=== PATIENT | female | born 1980 | race Hispanic/Latino ===

== ENCOUNTER 2020-05-19 01:09 | Observation (INO) | payer OTHER, SELFPAY ==
[2020-05-19 01:39] LABS: Protime INR 0.97
[2020-05-19 01:41] LABS: Absolute Lymphocytes (CBC) 2.8 K/uL (0.7-4.9); Basophils % 0.6 % (0-1.3); Hematocrit 42.3 % (36.0-45.0); MPV 7.9 fL (7.6-11.3); RBC Red Blood Cell Count 4.74 M/uL (3.86-4.86)
[2020-05-19 01:54] LABS: ALT/SGPT 24 U/L (12-78); AST/SGOT 13 U/L (15-37); Albumin 4.2 g/dL (3.4-5.0); Alkaline Phosphatase 91 U/L (45-117); BUN Blood Urea Nitrogen 12 mg/dL (7-18); Bicarbonate 19 mmol/L (21-32); Bilirubin Direct < 0.1 mg/dL (0-0.2); Bilirubin Total 0.3 mg/dL (0.2-1.0); Glucose Level 139 mg/dL (74-106); NT PRO-BNP 37 pg/mL (<125); Potassium 3.3 mmol/L (3.5-5.1); Protein, Total 7.7 g/dL (6.4-8.2); Sodium Level 139 mmol/L (136-145); Troponin (Emerg Dept Use Only) < 0.02 ng/mL (0.0-0.045)
[2020-05-19] MEDS ORDERED: ONDANSETRON 4 MG/2 ML VIAL ONE ×2 (01:59→05:04)
--- NOTE | 2020-05-19 02:49 | EDPHYS ---
Physician Documentation [facility] Name: Simin Doe Age: 39 yrs Sex: Female : 1980 Arrival Date: 05/19/2020 Time: 01:09 Bed 6 Private MD: ED Physician Coleman Valentin HPI: 05/19 03:39 This 39 yrs old Female presents to ER via Ambulatory with complaints of Chest tw4 Pain, Numbness Of Arm. 03:39 The patient presents with abdominal pain. Onset: The symptoms/episode began/occurred tw4 today. The symptoms do not radiate. Associated signs and symptoms: Pertinent positives: nausea, vomiting, and diarrhea, nausea and vomiting, Pertinent negatives: constipation, diarrhea, dysuria, fever, headache, hematuria, palpitations, shortness of breath, vaginal discharge. The symptoms are described as crampy. Modifying factors: The symptoms are alleviated by nothing, the symptoms are aggravated by nothing. The patient has not experienced similar symptoms in the past. 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 - Social history:: Smoking status: Patient denies any tobacco usage or history of. Patient uses alcohol, occasionally. Patient/guardian denies using street drugs. ROS: 03:39 Constitutional: Negative for fever, chills, and weight loss, Eyes: Negative for injury, tw4 pain, redness, and discharge, Cardiovascular: Negative for chest pain, palpitations, and edema, Respiratory: Negative for shortness of breath, cough, wheezing, and pleuritic chest pain. 03:39 MS/Extremity: Negative for injury and deformity, Skin: Negative for injury, rash, and discoloration. 03:39 Abdomen/GI: Positive for abdominal pain, nausea and vomiting, anorexia, dysphagia, hematemesis, black/tarry stool, rectal pain, Negative for Exam: 03:39 Constitutional: This is a well developed, well nourished patient who is awake, alert, tw4 and in no acute distress. Head/Face: Normocephalic, atraumatic. Chest/axilla: Normal chest wall appearance and motion. Nontender with no deformity. No lesions are appreciated. Cardiovascular: Regular rate and rhythm with a normal S1 and S2. No gallops, murmurs, or rubs. Normal PMI, no JVD. No pulse deficits. Respiratory: Lungs have equal breath sounds bilaterally, clear to auscultation and percussion. No rales, rhonchi or wheezes noted. No increased work of breathing, no retractions or nasal flaring. Back: No spinal tenderness. No costovertebral tenderness. Full range of motion. 03:39 Abdomen/GI: Inspection: abdomen appears normal, Bowel sounds: normal, Palpation: mild abdominal tenderness, in all quadrants. Vital Signs: 01:17 BP 131 / 87 LA Supine; Pulse 81; Resp 20 S; Temp 98.8(O); Pulse Ox 100% on R/A; Weight mg2 81.65 kg (R); Height 4 ft. 9 in. (144.78 cm) (R); Pain 10/10; 01:38 BP 139 / 73 RA Supine; Pulse 62; Resp 18; Pulse Ox 100% on R/A; mg2 02:58 BP 137 / 66; Pulse 63; Resp 18; Pulse Ox 97% on R/A; mg2 04:00 BP 134 / 89; Pulse 63; Resp 18; Pulse Ox 99% on R/A; rv 05:03 BP 129 / 89; Pulse 76; Resp 16; Pulse Ox 99% on R/A; rv 06:28 BP 135 / 87; Pulse 57; Resp 16; Pulse Ox 99% on R/A; rv 01:17 Body Mass Index 38.95 (81.65 kg, 144.78 cm) mg2 MDM: 01:20 Patient medically screened. tw4 03:41 Data reviewed: vital signs, nurses notes. Data interpreted: Pulse oximetry: tw4 Interpretation: normal. Counseling: I had a detailed discussion with the patient and/or guardian regarding: the historical points, exam findings, and any diagnostic results supporting the discharge/admit diagnosis. 05:07 Medication response: morphine relieved the patient's pain. Symptoms have resolved. tw4 Response to treatment: the patient's symptoms have mildly improved after treatment. Physician consultation: Tigre Castañeda MD regarding admission, to the medical/surgical unit. patient's condition, and will see patient in ED. 05/19 01:15 Order name: Basic Metabolic Panel; Complete Time: 02:47 tw4 05/19 02:47 Interpretation: Normal except: K 3.3; GLUC 139; CO2 19; CL 108; GFR 81. 05/19 01:15 Order name: CBC with Diff; Complete Time: 02:47 05/19 02:47 Interpretation: Within normal limits. 05/19 01:15 Order name: LFT's; Complete Time: 02:47 4 05/19 02:47 Interpretation: Normal except: AST 13. 05/19 01:15 Order name: Magnesium; Complete Time: 02:47 05/19 02:47 Interpretation: Within normal limits: MG 2.0. 05/19 01:15 Order name: NT PRO-BNP; Complete Time: 02:47 05/19 02:47 Interpretation: Within normal limits: NT PRO-BNP 37. 05/19 01:15 Order name: PT-INR; Complete Time: 02:47 05/19 02:47 Interpretation: Within normal limits: PT 11.4. 05/19 01:15 Order name: Troponin (emerg Dept Use Only); Complete Time: 02:47 [facility] 05/19 02:47 Interpretation: Within normal limits: TROPED < 0.02. 4 05/19 06:59 Order name: Basic Metabolic Panel [facility] 05/19 06:59 Order name: Basic Metabolic Panel [facility] 05/19 06:59 Order name: CBC with Automated Diff [facility] 05/19 06:59 Order name: CBC with Automated Diff [facility] 05/19 06:59 Order name: Lipase [facility] 05/19 06:59 Order name: Lipase [facility] 05/19 06:59 Order name: Liver (Hepatic) Function [facility] 05/19 01:15 Order name: XRAY Chest (1 view) tw 05/19 01:15 Order name: EKG; Complete Time: 01:16 05/19 01:16 Order name: Cardiac monitoring; Complete Time: 01:22 05/19 01:16 Order name: EKG - Nurse/Tech; Complete Time: 01:22 05/19 01:16 Order name: IV Saline Lock; Complete Time: : tw4 05/19 01:16 Order name: Labs collected and sent; Complete Time: tw4 05/19 01:16 Order name: O2 Per Protocol; Complete Time: tw4 05/19 01:16 Order name: O2 Sat Monitoring; Complete Time: : tw4 05/19 02:59 Order name: CT Abd/Pelvis - IV Contrast Only tw4 05/19 06:59 Order name: NPO [facility] 05/19 06:59 Order name: Liver (Hepatic) Function ED[facility] EC:55 Rate is 75 beats/min. Rhythm is regular. QRS [place] is Normal. [place] interval is normal. QRS tw4 interval is normal. QT interval is normal. No Q waves. T waves are Normal. No ST changes noted. Clinical impression: NSR w/ Non-specific ST/T Changes. Interpreted by me. Reviewed by me. Administered Medications: 04:43 Drug: Zosyn 3.375 grams Route: IVPB; Infused Over: 60 mins; Site: right antecubital; bb 06:28 Follow up: IV Status: Completed infusion; IV Intake: 100ml rv 04:56 Drug: morphine 4 mg Route: IVP; Site: right antecubital; rv 06:28 Follow up: Response: No adverse reaction; Marked relief of symptoms; Pain is decreased; rv RASS: Alert and Calm (0) 04:56 Drug: Zofran (Ondansetron) 4 mg Route: IVP; Site: right antecubital; rv 06:28 Follow up: Response: No adverse reaction; Marked relief of symptoms rv Disposition: 05/19/20 04:44 Hospitalization ordered by Tigre Castañeda for Inpatient Admission. Preliminary diagnosis is Cholecystitis. - Bed requested for Telemetry/MedSurg (Inpatient). - Status is Inpatient Admission. bb - Condition is Stable. - Problem is new. - Symptoms are unchanged. Signatures: Dispatcher [employer] EDAriela Stewart RN RN bb Garcia, Cindy, RN RN cg Wadley, Terrence, MD MD tw4 Bebeto Peacock RN RN rv Corrections: (The following items were deleted from the chart) 04:35 02:49 05/19/2020 02:49 Discharged to Home. Impression: Nausea and vomiting. Condition tw4 is Stable. Forms are Medication Reconciliation Form, Thank You Letter, Antibiotic Education, Prescription Opioid Use. Follow up: Private Physician; When: Upon discharge from the Emergency Department; Reason: Recheck today's complaints, Continuance of care, Re-evaluation by your physician. Problem is new. Symptoms have improved. tw4 04:58 04:44 Hospitalization Ordered by Tigre Castañeda MD for Inpatient Admission. Preliminary cg diagnosis is Cholecystitis. Bed requested for Telemetry/MedSurg (Inpatient). Status is Inpatient Admission. Condition is Stable. Problem is new. Symptoms are unchanged. tw4 06:09 04:58 05/19/2020 04:44 Hospitalization Ordered by Tigre Castañeda MD for Inpatient cg Admission. Preliminary diagnosis is Cholecystitis. Bed requested for [facility] ER HOLD. Status is Inpatient Admission. Condition is Stable. Problem is new. Symptoms are unchanged. 06:57 06:09 05/19/2020 04:44 Hospitalization Ordered by Tigre Castañeda MD for Inpatient cg Admission. Preliminary diagnosis is Cholecystitis. Bed requested for Telemetry/MedSurg (Inpatient). Status is Inpatient Admission. Condition is Stable. Problem is new. Symptoms are unchanged. 07:38 06:57 05/19/2020 04:44 Hospitalization Ordered by Tigre Castañeda MD for Inpatient bb Admission. Preliminary diagnosis is Cholecystitis. Bed requested for Telemetry/MedSurg (Inpatient). Status is Inpatient Admission. Condition is Stable. Problem is new. Symptoms are unchanged. cg
--- NOTE | 2020-05-19 02:49 | ER ---
Nurse's Notes [facility] Name: Simin Doe Age: 39 yrs Sex: Female : 1980 Arrival Date: 05/19/2020 Time: : Bed 6 Private MD: Diagnosis: Cholecystitis Presentation: 05/19 01:17 Chief complaint: Patient states: she started having chest pain tonight with difficulty bb breathing and numbness to right arm. Coronavirus screen: At this time, the client does not indicate any symptoms associated with coronavirus-19. Ebola Screen: No symptoms or risks identified at this time. Initial Sepsis Screen: Does the patient meet any 2 criteria? No. Patient's initial sepsis screen is negative. Does the patient have a suspected source of infection? No. Patient's initial sepsis screen is negative. Risk Assessment: Do you want to hurt yourself or someone else? Patient reports no desire to harm self or others. Onset of symptoms was May 19, 2020. 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 - Social history:: Smoking status: Patient denies any tobacco usage or history of. Patient uses alcohol, occasionally. Patient/guardian denies using street drugs. Screenin:23 Abuse screen: Denies threats or abuse. Denies injuries from another. Nutritional mg2 screening: No deficits noted. Tuberculosis screening: No symptoms or risk factors identified. Fall Risk IV access (20 points). Assessment: 01:23 General: Appears uncomfortable, Behavior is cooperative. Pain: Complains of pain in mg2 back and chest Pain currently is 9 out of 10 on a pain scale. Pain began gradually, Is intermittent. Neuro: Level of Consciousness is awake, alert, obeys commands, Oriented to person, place, time, situation. Cardiovascular: Capillary refill < 3 seconds Patient's skin is warm and dry. Respiratory: Airway is patent Respiratory effort is even, unlabored, Respiratory pattern is regular, symmetrical. GI: No signs and/or symptoms were reported involving the gastrointestinal system. : No signs and/or symptoms were reported regarding the genitourinary system. EENT: No signs and/or symptoms were reported regarding the EENT system. Derm: Skin is intact, is healthy with good turgor, Skin is pink, warm \T\ dry. normal. Musculoskeletal: Circulation, motion, and sensation intact. Capillary refill < 3 seconds. 01:24 Pain: mg2 01:37 Reassessment: Patient appears in no apparent distress at this time. Patient and/or mg2 family updated on plan of care and expected duration. Pain level reassessed. Patient is alert, oriented x 3, equal unlabored respirations, skin warm/dry/pink. 02:57 Reassessment: patient complaining abdominal pain radiating to the back. mg2 05:01 Reassessment: ABDOMINAL CT SCAN IS DONE. TEST RESULT EXPLAINED BY DR ROMANO TO THE rv PATIENT. STATED PLAN OF CARE. PATIENT VERBALIZED UNDERSTANDING. AWAITING ADMISSION ORDERS. Vital Signs: 01:17 BP 131 / 87 LA Supine; Pulse 81; Resp 20 S; Temp 98.8(O); Pulse Ox 100% on R/A; Weight mg2 81.65 kg (R); Height 4 ft. 9 in. (144.78 cm) (R); Pain 10/10; 01:38 BP 139 / 73 RA Supine; Pulse 62; Resp 18; Pulse Ox 100% on R/A; mg2 02:58 BP 137 / 66; Pulse 63; Resp 18; Pulse Ox 97% on R/A; mg2 04:00 BP 134 / 89; Pulse 63; Resp 18; Pulse Ox 99% on R/A; rv 05:03 BP 129 / 89; Pulse 76; Resp 16; Pulse Ox 99% on R/A; rv 06:28 BP 135 / 87; Pulse 57; Resp 16; Pulse Ox 99% on R/A; rv 01:17 Body Mass Index 38.95 (81.65 kg, 144.78 cm) mg2 ED Course: 01:09 Patient arrived in ED. cl3 01:19 Triage completed. bb 01:19 Coleman Romano MD is Attending Physician. tw4 01:20 Arm band placed on Patient placed in an exam room, on a stretcher, on rn cardiac cath, bb on pulse oximetry. EKG completed in triage. Results shown to MD. 01:22 Michel Salguero, RN is Primary Nurse. mg2 01:22 No provider procedures requiring assistance completed. Inserted saline lock: 20 gauge mg2 in right antecubital area, using aseptic technique. Blood collected. Patient maintains SpO2 saturation greater than 95% on room air. 01:24 Patient has correct armband on for positive identification. dermatologist managing partner on. Pulse mg2 ox on. NIBP on. 01:40 XRAY Chest (1 view) In Process Unspecified. EDMS 03:41 CT Abd/Pelvis - IV Contrast Only In Process Unspecified. EDMS 04:43 Tigre Castañeda MD is Hospitalizing Provider. tw4 07:19 Report given to REJI White. tw2 Administered Medications: 04:43 Drug: Zosyn 3.375 grams Route: IVPB; Infused Over: 60 mins; Site: right antecubital; bb 06:28 Follow up: IV Status: Completed infusion; IV Intake: 100ml rv 04:56 Drug: morphine 4 mg Route: IVP; Site: right antecubital; rv 06:28 Follow up: Response: No adverse reaction; Marked relief of symptoms; Pain is decreased; rv RASS: Alert and Calm (0) 04:56 Drug: Zofran (Ondansetron) 4 mg Route: IVP; Site: right antecubital; rv 06:28 Follow up: Response: No adverse reaction; Marked relief of symptoms rv Intake: 06:28 IV: 100ml; Total: 100ml. rv Outcome: 02:49 Discharge ordered by MD. tw4 04:44 Decision to Hospitalize by Provider. tw4 07:38 Patient left the ED. bb Signatures: Dispatcher [employer] EDMS Ariela Oconnor RN RN bb Lucy Jacinto RN RN tw2 Coleman Romano MD MD tw4 Michel Salguero, REJI MENDOZA mg2 Bebeto Peacock RN RN rv Latricia Rhodes cl3 Corrections: (The following items were deleted from the chart) 01:25 01:17 BP 131 / 87; Pulse 81bpm; Resp 20bpm; Spontaneous; Pulse Ox 100% RA; Temp 98.8F mg2 Oral; 81.65 kg Reported; Height 4 ft. 9 in. Reported; BMI: 38.9; Pain 10/10; bb
[2020-05-19] MEDS ORDERED: PIPER/TAZO/NS 3.375gm 3.375 GM/100 ML BAG ONE (04:53)
[2020-05-19] MEDS ORDERED: MORPHINE 4 MG/ML SYR ONE (05:04)
[2020-05-19] MEDS ORDERED: ONDANSETRON 4 MG/2 ML VIAL IV PRN (06:58)
--- NOTE | 2020-05-19 07:16 | RAD REPORT ---
EXAM DESCRIPTION: RAD - Chest Single View - 05/19/2020 1:40 am CLINICAL HISTORY: COUGH COMPARISON: September 2014 TECHNIQUE: AP portable chest image was obtained 05/19/2020 1:40 am . FINDINGS: Lung volumes are low. No focal lung parenchymal process. Interstitial pattern is accentuat ed by the low lung volumes. Significant interstitial edema or infiltrate doubtful. Heart and vasculat ure are normal. No measurable pleural effusion and no pneumothorax. No acute bony abnormality seen. N o acute aortic findings suspected. IMPRESSION: No acute cardiopulmonary process. No significant change from comparison.
[2020-05-19 08:07] VITALS: O2SAT 97; BMI 38.9
[2020-05-19] MEDS: D5 0.45 NS 1,000 ML IV SCH ×2 (08:13→15:00)
--- NOTE | 2020-05-19 12:04 | RAD REPORT ---
EXAM DESCRIPTION: CT - Abdomen Pelvis W Contrast - 05/19/2020 5:48 am CLINICAL HISTORY: The patient is 39 years old and is Female; ABD PAIN TECHNIQUE: Axial computed tomography images of the abdomen and pelvis with intravenous contrast. S agittal and coronal reformatted images were created and reviewed. This CT exam was performed using one or more of the following dose reduction techniques: automated exposure control, adjustment of t he mA and/or kV according to patient size, and/or use of iterative reconstruction technique. COMPARISON: No relevant prior studies available. FINDINGS: LUNG BASES: Unremarkable. No mass. No consolidation. ABDOMEN: LIVER: Unremarkable. No mass. GALLBLADDER AND BILE DUCTS: The gallbladder is distended with a large gallstone in the neck of t he gallbladder. Pericholecystic inflammation/gallbladder wall thickening is present. PANCREAS: No ductal dilation. No mass. SPLEEN: Unremarkable. ADRENALS: Unremarkable. No mass. KIDNEYS AND URETERS: Unremarkable. The kidneys enhance symmetrically. No obstructing renal or ur eteral calculus is seen. No hydronephrosis or hydroureter. No perinephric fluid or stranding. STOMACH AND BOWEL: The stomach is minimally distended with food contents. The small bowel is rel atively normal in caliber. Stool is present throughout the colon. There is no mucosal thickening or e vidence of bowel obstruction. PELVIS: APPENDIX: The appendix is normal in caliber without surrounding inflammation. BLADDER: The bladder is well distended. REPRODUCTIVE: An IUD is in place. The uterus and ovaries are unremarkable. ABDOMEN and PELVIS: INTRAPERITONEAL SPACE: Unremarkable. No free air. No significant fluid collection. BONES/JOINTS: No acute fracture. SOFT TISSUES: The soft tissues are normal. VASCULATURE: Unremarkable. No abdominal aortic aneurysm. LYMPH NODES: Unremarkable. No enlarged lymph nodes. IMPRESSION: Cholelithiasis with findings concerning for acute cholecystitis. Electronically signed by: Sherlyn Thayer MD 05/19/2020 4:00 AM CDT Due to temporary technical issues with the PACS/Fluency reporting system, reports are being signed by the in house radiologist without review as a courtesy to ensure prompt reporting. The interpreting r adiologist is fully responsible for the content of the report.
[2020-05-19] MEDS ORDERED: MORPHINE 2 MG/ML SYR IV ONE (12:07)
--- NOTE | 2020-05-19 12:16 | EKG ---
Test Date: 2020-05-19 Test Time: 01:15:41 Child Caregiver: RV MEASUREMENT RESULTS: Intervals: Rate: 75 TX: 130 QRSD: 84 QT: 396 QTc: 442 [place]: P: -12 TX: 130 QRS: -4 T: 1 INTERPRETIVE STATEMENTS: Normal sinus rhythm with sinus arrhythmia Possible Anterior infarct, age undetermined Abnormal ECG No previous ECG available for comparison Electronically Signed On 05-19-20 12:15:03 CDT by Westley Olivia
[2020-05-19 12:22] VITALS: BP 127/80; TEMP 98
--- NOTE | 2020-05-19 13:34 | P.HP ---
Date of Service: 05/19/20 PC: This 39-year-old female presents emergency room with severe right upper quadrant abdominal pain for diagnosis and treatment. HPC: This is the patient's 1st episode was severe right upper quadrant abdominal pain. Describes it as severe, radiating into her back. Has been on some weight loss medication recent lost of 18 lb. PMH: 2 para 2 PSHx: Negative SOC: No known allergies SYS REVIEW: No cough, wheeze, shortness of breath. No chest pain or palpitations. No urinary complaints. On further questioning she denies having any fatty food intolerance, or pain similar to this in the past. O/E awake alert relatively comfortable, vital signs are stable HEENT: Not jaundice Chest: Air movement equal bilaterally ABD: Mild soreness in the right upper quadrant LOCO: Intact DATA: Has large documented gallstone IMPRESSION: Cholecystitis with biliary call PLAN: I had intended on taking the patient to the operating room for a laparoscopic cholecystectomy with intraoperative cholangiogram. Our anesthesiologist however is very concerned the fact that the patient has been on Fen-Phen and the incidence of sudden in young otherwise healthy patient is has been reported. He recommends that we postpone the surgery for at least a week. I have discussed this with the patient. She is comfortable with that decision. She will come see me sometime next week and we will try and schedule this as an elective procedure. In the meantime she has been told should she have recurrence of her pain were could no longer tolerate return to the emergency room and contact me. She understands and wants to proceed.
== END 2020-05-19 15:27 | disposition home or self-care (01) ==
LOC: ER 01:09 → INTOOBSV 07:02 → ERHOLD 07:02 → 2ND 07:22
PROVIDERS: ADMIT Surgery; ATTEND Surgery
DX: K81.9 Cholecystitis, unspecified (principal); F41.9 Anxiety disorder, unspecified
CPT/HCPCS: 36415; 71045; 74177; 80048; 80076; 83735; 83880; 84484; 84703; 85025; 85610; 93005; 96365; 96366; 96375; 99285; G0378; J2270; J2405; J2543; J7799; Q9967; U0002

== ENCOUNTER 2020-05-25 06:10 | Inpatient (IN) | payer SELFPAY ==
[2020-05-25 06:53] LABS: Absolute Lymphocytes (CBC) 1.7 K/uL (0.7-4.9); Basophils % 0.4 % (0-1.3); Hematocrit 41.4 % (36.0-45.0); Lymphocytes % 17.3 % (15.3-44.8); MPV 7.6 fL (7.6-11.3); RBC Red Blood Cell Count 4.62 M/uL (3.86-4.86)
[2020-05-25] MEDS ORDERED: ONDANSETRON 4 MG/2 ML VIAL ONE ×2 (07:00→12:56)
[2020-05-25] MEDS ORDERED: NA CHLORIDE 0.9% 1,000 ML ONE ×2 (07:00→08:29)
[2020-05-25] MEDS ORDERED: MORPHINE 4 MG/ML SYR ONE (07:00)
[2020-05-25 07:10] LABS: ALT/SGPT 39 U/L (12-78); AST/SGOT 19 U/L (15-37); Albumin 3.3 g/dL (3.4-5.0); Alkaline Phosphatase 107 U/L (45-117); BUN Blood Urea Nitrogen 7 mg/dL (7-18); Bicarbonate 23 mmol/L (21-32); Bilirubin Direct < 0.1 mg/dL (0-0.2); Bilirubin Total 0.2 mg/dL (0.2-1.0); Glucose Level 105 mg/dL (74-106); Lipase 66 U/L (73-393); Potassium 3.8 mmol/L (3.5-5.1); Protein, Total 7.7 g/dL (6.4-8.2); Sodium Level 138 mmol/L (136-145)
--- NOTE | 2020-05-25 07:18 | RAD REPORT ---
EXAM DESCRIPTION: US - Abdomen Exam Limited - 05/25/2020 7:09 am CLINICAL HISTORY: ABD PAIN COMPARISON: Abdomen Pelvis W Contrast dated 05/19/2020 FINDINGS: Large gallstone is again identified fixed in the neck of the gallbladder. No other stone o r sludge identifiable. Gallbladder wall is thickened slightly but no pericholecystic fluid seen. No common duct stone or biliary tree dilatation identified. IMPRESSION: Large gallstone remains fixed at the neck of the gallbladder. Gallbladder wall is thicke harvey the without pericholecystic fluid. No biliary tree abnormality.
--- NOTE | 2020-05-25 08:06 | EDPHYS ---
Physician Documentation [facility] Name: Simin Doe Age: 39 yrs Sex: Female : 1980 Arrival Date: 05/25/2020 Time: 06:10 Bed 8 Private MD: ED Physician Rick Villanueva HPI: 05/25 07:07 This 39 yrs old Female presents to ER via Ambulatory with complaints of kb Abdominal Pain. 07:07 The patient presents with abdominal pain in the right upper quadrant. Onset: The kb symptoms/episode began/occurred 1 week(s) ago. The symptoms radiate to right back. Associated signs and symptoms: none. The symptoms are described as constant. Modifying factors: The symptoms are alleviated by nothing, the symptoms are aggravated by pressure. Severity of pain: At its worst the pain was moderate in the emergency department the pain is unchanged. The patient has not experienced similar symptoms in the past. The patient has been recently seen by a physician: The patient has been recently seen at the [facility] Emergency Department. Pt reports RUQ pain started on Monday. Came here and was diagnosed with gallstones and infection. Saw Dr Castañeda on Monday in his office. States they were going to do surgery, but the anesthesiologist wanted her to stop phenermine for a while first. Came back today because the pain was uncontrollable. . 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 - Social history:: Smoking status: Patient denies any tobacco usage or history of. ROS: 07:06 Constitutional: Negative for fever, chills, and weight loss, Cardiovascular: Negative kb for chest pain, palpitations, and edema, Respiratory: Negative for shortness of breath, cough, wheezing, and pleuritic chest pain, Back: Negative for injury and pain, MS/Extremity: Negative for injury and deformity, Skin: Negative for injury, rash, and discoloration, Neuro: Negative for headache, weakness, numbness, tingling, and seizure. 07:06 Abdomen/GI: Positive for abdominal pain, Negative for nausea, vomiting, and diarrhea. Exam: 07:06 Constitutional: This is a well developed, well nourished patient who is awake, alert, kb and in no acute distress. Head/Face: Normocephalic, atraumatic. Chest/axilla: Normal chest wall appearance and motion. Nontender with no deformity. No lesions are appreciated. Cardiovascular: Regular rate and rhythm with a normal S1 and S2. No gallops, murmurs, or rubs. Normal PMI, no JVD. No pulse deficits. Respiratory: Lungs have equal breath sounds bilaterally, clear to auscultation and percussion. No rales, rhonchi or wheezes noted. No increased work of breathing, no retractions or nasal flaring. Back: No spinal tenderness. No costovertebral tenderness. Full range of motion. Skin: Warm, dry with normal turgor. Normal color with no rashes, no lesions, and no evidence of cellulitis. MS/ Extremity: Pulses equal, no cyanosis. Neurovascular intact. Full, normal range of motion. Neuro: Awake and alert, GCS 15, oriented to person, place, time, and situation. Cranial nerves II-XII grossly intact. Motor strength 5/5 in all extremities. Sensory grossly intact. Cerebellar exam normal. Normal gait. 07:06 Abdomen/GI: Inspection: abdomen appears normal, Bowel sounds: normal, in all quadrants, Palpation: soft, in all quadrants, mild abdominal tenderness, in the right upper quadrant. Vital Signs: 06:30 BP 129 / 100; Pulse 100; Resp 18; Temp 98.8(O); Pulse Ox 100% on R/A; Weight 86.18 kg lp1 (R); Height 4 ft. 9 in. (144.78 cm); Pain 10/10; 09:10 BP 123 / 85; Pulse 83; ss 09:22 BP 130 / 87; Pulse 88; Resp 16; Pulse Ox 100% ; sv 06:30 Body Mass Index 41.12 (86.18 kg, 144.78 cm) lp1 MDM: 06:29 Patient medically screened. kb 07:07 Data reviewed: vital signs, nurses notes. Data interpreted: Pulse oximetry: on room air kb is 100 %. Interpretation: normal. 08:02 Counseling: I had a detailed discussion with the patient and/or guardian regarding: the kb historical points, exam findings, and any diagnostic results supporting the discharge/admit diagnosis, lab results, radiology results, the need for further work-up and treatment in the hospital. Physician consultation: Tigre Castañeda MD was contacted at 08:04, regarding admission, to the medical/surgical unit. patient's condition, and will see patient in inpatient room, later today, wants pt NPO for cholecystectomy today. 05/25 06:35 Order name: Basic Metabolic Panel kb 05/25 06:35 Order name: CBC with Diff kb 05/25 06:35 Order name: Hepatic Function kb 05/25 06:35 Order name: Lipase kb 05/25 06:54 Order name: CBC with Automated Diff; Complete Time: 06:55 EDMS 05/25 07:10 Order name: Basic Metabolic Panel; Complete Time: 07:15 EDMS 05/25 06:35 Order name: US Abdomen Limited kb 05/25 07:10 Order name: Liver (Hepatic) Function; Complete Time: 07:15 EDMS 05/25 07:10 Order name: Lipase; Complete Time: 07:15 EDMS 05/25 07:19 Order name: US; Complete Time: 07:34 EDMS 05/25 08:06 Order name: Urine Dipstick--Ancillary (enter results) bd 05/25 08:06 Order name: Urine --Ancillary (enter results) bd 05/25 08:42 Order name: Urine --Ancillary; Complete Time: 08:42 EDMS 05/25 08:42 Order name: Urine Dipstick-Ancillary; Complete Time: 08:42 EDMS 05/25 06:35 Order name: IV Saline Lock; Complete Time: 06:47 kb 05/25 06:35 Order name: Labs collected and sent; Complete Time: 06:47 kb Administered Medications: 06:50 Drug: NS 0.9% 1000 ml Route: IV; Rate: 1000 ml; Site: right antecubital; rv 09:00 Follow up: Response: No adverse reaction; IV Status: Completed infusion; IV Intake: sv 1000ml 06:50 Drug: Zofran (Ondansetron) 4 mg Route: IVP; Site: right antecubital; rv 07:30 Follow up: Response: No adverse reaction sv 06:50 Drug: morphine 4 mg {Note: RASS 0.} Route: IVP; Site: right antecubital; rv 07:30 Follow up: Response: No adverse reaction; Marked relief of symptoms; RASS: Alert and sv Calm (0) 08:37 Drug: Zosyn 3.375 grams Route: IVPB; Infused Over: 60 mins; Site: right antecubital; sv 09:23 Follow up: Response: No adverse reaction; IV Status: Infusion continued upon admission sv Disposition: 19:03 Co-signature as Attending Physician, Rick Villanueva MD. pkl Disposition: 05/25/20 08:06 Hospitalization ordered by Tigre Castañeda for Observation. Preliminary diagnosis is Cholecystitis. - Bed requested for Telemetry/MedSurg (observation). - Status is Observation. sv - Condition is Stable. - Problem is new. - Symptoms are unchanged. Signatures: Dispatcher [employer] EDMS Tanvi Acosta, LIAM-C FUEL OIL TRUCK DRIVER-Ashanti Skelton Stephanie, RN RN Rick Cole MD MD pkl Ida Hooker RN RN lp1 Bebeto Peacock, RN RN rv Corrections: (The following items were deleted from the chart) 09:02 08:06 Hospitalization Ordered by Tigre Castañeda MD for Observation. Preliminary bd diagnosis is Cholecystitis. Bed requested for Telemetry/MedSurg (observation). Status is Observation. Condition is Stable. Problem is new. Symptoms are unchanged. kb 09:35 09:02 05/25/2020 08:06 Hospitalization Ordered by Tigre Castañeda MD for Observation. sv Preliminary diagnosis is Cholecystitis. Bed requested for Telemetry/MedSurg (observation). Status is Observation. Condition is Stable. Problem is new. Symptoms are unchanged. bd
--- NOTE | 2020-05-25 08:06 | ER ---
Nurse's Notes [facility] Name: Simin Doe Age: 39 yrs Sex: Female : 1980 Arrival Date: 05/25/2020 Time: 06:10 Bed 8 Private MD: Diagnosis: Cholecystitis Presentation: 05/25 06:30 Chief complaint: Patient states: Upper abdominal pain radiating to back; States seeing lp1 Dr. Castañeda 3 days ago for gallbladder removal, unable to schedule surgery, told to return to ER if pain worsened; Denies N/V, fever. 06:30 Method Of Arrival: Ambulatory lp1 06:30 Coronavirus screen: Client denies travel out of the [place] in the last 14 days. At this lp1 time, the client does not indicate any symptoms associated with coronavirus-19. Ebola Screen: No symptoms or risks identified at this time. Initial Sepsis Screen: Does the patient meet any 2 criteria? No. Patient's initial sepsis screen is negative. Does the patient have a suspected source of infection? No. Patient's initial sepsis screen is negative. Risk Assessment: Do you want to hurt yourself or someone else? Patient reports no desire to harm self or others. Onset of symptoms was May 25, 2020. 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 - Social history:: Smoking status: Patient denies any tobacco usage or history of. Screenin:46 Abuse screen: Denies threats or abuse. Denies injuries from another. Nutritional lp1 screening: No deficits noted. Tuberculosis screening: No symptoms or risk factors identified. Fall Risk None identified. Assessment: 06:45 General: Appears uncomfortable, Behavior is appropriate for age. Pain: Complains of lp1 pain in epigastric area and right upper quadrant Pain radiates to back Pain currently is 10 out of 10 on a pain scale. Quality of pain is described as sharp. Neuro: Level of Consciousness is awake, alert, obeys commands, Oriented to person, place, time, situation. Cardiovascular: Patient's skin is warm and dry. Respiratory: Respiratory effort is even, unlabored. GI: Abdomen is non-distended, Bowel sounds present X 4 quads. Abdomen is tender to palpation in epigastric area and right upper quadrant. : No signs and/or symptoms were reported regarding the genitourinary system. EENT: No signs and/or symptoms were reported regarding the EENT system. Derm: Skin is pink, warm \T\ dry. Musculoskeletal: No deficits noted. 09:09 Reassessment: Attempted to call report, nurse unavailable. sv Vital Signs: 06:30 BP 129 / 100; Pulse 100; Resp 18; Temp 98.8(O); Pulse Ox 100% on R/A; Weight 86.18 kg lp1 (R); Height 4 ft. 9 in. (144.78 cm); Pain 10/10; 09:10 BP 123 / 85; Pulse 83; ss 09:22 BP 130 / 87; Pulse 88; Resp 16; Pulse Ox 100% ; sv 06:30 Body Mass Index 41.12 (86.18 kg, 144.78 cm) lp1 ED Course: 06:10 Patient arrived in ED. cl3 06:29 Tanvi Acosta [facility]C [facility]. kb 06:29 Rick Villanueva MD is Attending Physician. kb 06:40 Inserted saline lock: 20 gauge in right antecubital area, using aseptic technique. lp1 Blood collected. 06:40 Initial lab(s) drawn, by al, sent to lab. lp1 06:44 Triage completed. lp1 06:44 Arm band placed on. lp1 06:46 Bebeto Peacock, RN is Primary Nurse. rv 06:46 Patient has correct armband on for positive identification. lp1 07:01 Shante Tran, RN is Primary Nurse. sv 07:01 Basic Metabolic Panel Sent. sv 07:01 CBC with Diff Sent. sv 07:01 Hepatic Function Sent. sv 07:01 Lipase Sent. sv 07:12 US Abdomen Limited Sent. sv 08:06 Tigre Castañeda MD is Hospitalizing Provider. kb 08:11 Urine --Ancillary (enter results) Sent. sv 08:11 Urine Dipstick--Ancillary (enter results) Sent. sv 08:55 Awaiting bed assignment. sv 09:22 No provider procedures requiring assistance completed. Patient admitted, IV remains in sv place. intact. Administered Medications: 06:50 Drug: NS 0.9% 1000 ml Route: IV; Rate: 1000 ml; Site: right antecubital; rv 09:00 Follow up: Response: No adverse reaction; IV Status: Completed infusion; IV Intake: sv 1000ml 06:50 Drug: Zofran (Ondansetron) 4 mg Route: IVP; Site: right antecubital; rv 07:30 Follow up: Response: No adverse reaction sv 06:50 Drug: morphine 4 mg {Note: RASS 0.} Route: IVP; Site: right antecubital; rv 07:30 Follow up: Response: No adverse reaction; Marked relief of symptoms; RASS: Alert and sv Calm (0) 08:37 Drug: Zosyn 3.375 grams Route: IVPB; Infused Over: 60 mins; Site: right antecubital; sv 09:23 Follow up: Response: No adverse reaction; IV Status: Infusion continued upon admission sv Intake: 09:00 IV: 1000ml; Total: 1000ml. sv Outcome: 08:06 Decision to Hospitalize by Provider. kb 09:22 Admitted to Med/surg accompanied by tech, via wheelchair, room 204, with chart, Report sv called to Christopher MENDOZA 09:22 Condition: stable 09:22 Instructed on the need for admit. 09:35 Patient left the ED. sv Signatures: Tanvi Acosta, PROFILE SAW SETUP OPERATOR-C PROFILE SAW SETUP OPERATOR-Shante Jackman RN RN sv Smirch, Shelby, RN RN ss Pena, Laura, RN RN lp1 Bebeto Peacock RN RN rv Lewis, Charde cl3
[2020-05-25] MEDS ORDERED: PIPER/TAZO/NS 3.375gm 3.375 GM/100 ML BAG ONE (08:29)
[2020-05-25 08:42] LABS: Urine Blood NEGATIVE (NEG); Urine Glucose NEGATIVE (NEG); Urine Protein NEGATIVE (NEG); Urine pH 6.5 (5.0-7.0)
[2020-05-25] MEDS ORDERED: NA CHLORIDE 0.9% 1,000 ML IV SCH (09:51)
[2020-05-25] MEDS ORDERED: PIPER/TAZO/NS 3.375gm 3.375 GM/100 ML BAG IVPB SCH (09:51)
[2020-05-25] MEDS ORDERED: MORPHINE 4 MG/ML SYR IV PRN (09:51)
[2020-05-25] MEDS ORDERED: ONDANSETRON 4 MG/2 ML VIAL IV PRN ×2 (09:51→15:03)
[2020-05-25 10:05] VITALS: BMI 38.9
[2020-05-25] MEDS ORDERED: Ringers Lactate 1,000 ML IV ONE ×2 (12:24→14:02)
[2020-05-25] MEDS ORDERED: FENTANYL CITR 100 MCG/2 ML ONE ×3 (12:55→14:51)
[2020-05-25] MEDS ORDERED: KETOROLAC 30 MG/ML INJ ONE (12:55)
[2020-05-25] MEDS ORDERED: MIDAZOLAM HCL 2 MG/2 ML INJ ONE (12:55)
[2020-05-25] MEDS ORDERED: propofoL 200 MG/20 ML VIAL IV ONE (12:55)
[2020-05-25] MEDS ORDERED: dexAMETHasone 10 MG/ML VIAL ONE (12:55)
[2020-05-25] MEDS ORDERED: ROCURONIUM 50 MG/5 ML VIAL IV ONE (12:56)
[2020-05-25] MEDS ORDERED: LIDOCAINE 2% MPF 5 ML VIAL ONE (12:56)
--- NOTE | 2020-05-25 13:08 | P.HP ---
Date of Service: 05/25/20 PC: This 39-year-old female presents emergency room with severe right upper quadrant abdominal pain for diagnosis and treatment. HPC: This patient, who was known to have a large stone in her gallbladder, return to the emergency room last night she could no longer stand the pain. She had been seen one-week ureter and was hospitalist. At that point it was found that she was on Fen-Phen. Anesthesia had requested that the surgery be delayed at least 2 weeks. She has been at home but she could no longer stand the discomfort. PMH: Negative PSHx: Negative SOC: No known allergies SYS REVIEW: No cough, wheeze, shortness of breath. No chest pain or palpitations. Denies any urinary complaints. No change in her appetite. Just feels very tired as she has been able asleep for a well for the last 5 days. O/E awake alert uncomfortable HEENT: Not jaundiced Chest: Air entry equal bilaterally ABD: Mild right upper quadrant tenderness LOCO: Intact DATA: Has large documented stone in her gallbladder IMPRESSION: Cholecystitis with cholelithiasis, biliary colic PLAN: I will take her the operating room for laparoscopic cholecystectomy. The risks of this procedure have been discussed. The possibility of bleeding, infection, injury to bile ducts blood vessels intestines has been described. The possible need for an open and/or further surgeries and procedures was discussed. She understands and wants us to proceed.
[2020-05-25] MEDS ORDERED: SUCCINYLCHOLINE 20 MG/ML (10 ML) IV ONE (13:21)
[2020-05-25] MEDS ORDERED: NEOSTIGMINE 1 MG/ML -5 ML ONE (13:51)
[2020-05-25] MEDS ORDERED: GLYCOPYRROLATE 0.2 MG/ML SYR ONE (13:51)
[2020-05-25] MEDS ORDERED: ESMOLOL HCL 10 ML IV ONE ×2 (14:00→14:37)
--- NOTE | 2020-05-25 14:59 | P.OP ---
Preoperative diagnosis: Cholecystitis with cholelithiasis Postoperative diagnosis: Acute cholecystitis with cholelithiasis, hydrops of the gallbladder Primary procedure: Laparoscopic cholecystectomy Secondary procedure: Cholangiogram Other procedure(s): Jessica block Anesthesia: General Estimated blood loss: Less than 10 cc Specimen: 1 gallbladder and contents Findings: Chronically distended gallbladder, thick peel Operative Technique: The patient brought the operating room placed supine on the table. After the induction of adequate general endotracheal anesthesia, the area of the abdomen was prepped with a DuraPrep solution, she was draped in usual aseptic manner. A subumbilical incision was made. This brought down through the skin and subcutaneous tissue. The Visiport was now used to enter the peritoneal cavity and created pneumoperitoneum to approximately 12 mm of mercury. The patient was then placed in reverse Trendelenburg and rolled to the left. A 5 mm trocar was now placed in the upper midline, and 2 other 5 mm trocars on the right lateral side of the abdomen. We could visualize the liver and gallbladder. We could see that there was some acute as well as chronic omental adhesions on the serosal surface of the gallbladder. The acute was came down easily however there was a chronic peel over the gallbladder itself. This was carefully dissected off the gallbladder. This was done by placing a grasper on the fundus of the gallbladder. It was necessary to aspirate the contents of the gallbladder which we did. The contents appear to be mostly thin clear mucoid bile. Peel was traced around Sheila's pouch. Will was now possible place a grasper on Sheila's pouch applying lateral traction. We cleared the area so that we could provide for the critical view. There was lot of scar tissue in this area. The artery was easily identified. The cystic duct however was extremely short and we had to carefully dissect this out. A clip was placed across the cystic duct. It was quite short we only placed 1. The cystic duct was then transected. The cystic artery was identified and it was doubly clipped. The gallbladder was now dissected off of the liver bed. There was quite a lot of peel around even posteriorly on the gallbladder in the intrahepatic portion. We got into the correct plane and were able to remove the gallbladder from the liver bed. At 1 portion on the anterior surface we got slightly off plane. We were able easily control this using electro cautery. This pus was now placed into an Endo- Catch and using a nasal speculum we were able to allowed to egress from the peritoneal cavity. Attention was now turned towards right upper quadrant. Copious amounts of irrigating solution were used. We could see that the liver bed looked dry, no active bleeding was noted. The irrigating fluid was aspirated from the peritoneal cavity. The umbilical trocar site was now approximated with 3 interrupted sutures of 0 PDS. (Patient from the feel of the tissue and felt like she may have had a hernia there that was pre-existing. P 3 3) At this point, a Jessica block of the anterior abdominal was wall was done using 0.25% Marcaine. The pneumoperitoneum was now collapsed after having aspirated all the irrigating fluid from the peritoneal cavity. Marycruz were applied to the skin. These were then injected with again 0.25% Marcaine to allow for adequate analgesia during the postoperative period. Sterile dressings were applied At the end of the procedure she was in a stable condition when sent to the recovery room. Needle sponge instrument count were correct. No drains were placed. Complications: None Transferred to: Recovery Room Condition: Good
[2020-05-25] MEDS: MEPERIDINE HCL 25 MG/ML SYR ONE ×4 (15:13→15:31)
[2020-05-25] MEDS ORDERED: PROMETHAZINE INJ 25 MG/ML AMP ONE (15:24)
[2020-05-25 15:27] VITALS: O2SAT 98
[2020-05-25 15:43] LABS: Basophils % 0.2 % (0-1.3); Hematocrit 38.6 % (36.0-45.0); Lymphocytes % 18.6 % (15.3-44.8); MPV 7.4 fL (7.6-11.3); RBC Red Blood Cell Count 4.22 M/uL (3.86-4.86)
[2020-05-25] MEDS: NA CHLORIDE 0.9% 1,000 ML IV SCH ×2 (16:00→23:58)
[2020-05-25 16:02] LABS: BUN Blood Urea Nitrogen 5 mg/dL (7-18); Bicarbonate 26 mmol/L (21-32); Glucose Level 149 mg/dL (74-106); Potassium 4.2 mmol/L (3.5-5.1); Sodium Level 138 mmol/L (136-145)
[2020-05-25] MEDS: MORPHINE 4 MG/ML SYR IV PRN ×2 (17:08→20:32)
[2020-05-25] MEDS: PIPER/TAZO/NS 3.375gm 3.375 GM/100 ML BAG IVPB SCH ×2 (17:09→23:57)
[2020-05-25] MEDS: HYDROCODONE/APAP 7.5/325 MG TAB PO PRN (23:58)
[2020-05-26 06:03] LABS: ALT/SGPT 77 U/L (12-78); AST/SGOT 68 U/L (15-37); Absolute Lymphocytes (CBC) 0.8 K/uL (0.7-4.9); Alkaline Phosphatase 91 U/L (45-117); BUN Blood Urea Nitrogen 5 mg/dL (7-18); Basophils % 0.1 % (0-1.3); Bicarbonate 23 mmol/L (21-32); Bilirubin Direct 0.1 mg/dL (0-0.2); Bilirubin Total 0.3 mg/dL (0.2-1.0); Glucose Level 130 mg/dL (74-106); Hematocrit 37.4 % (36.0-45.0); Lipase 37 U/L (73-393); Lymphocytes % 5.4 % (15.3-44.8); MPV 7.6 fL (7.6-11.3); Potassium 3.9 mmol/L (3.5-5.1); Protein, Total 7.1 g/dL (6.4-8.2); RBC Red Blood Cell Count 4.15 M/uL (3.86-4.86); Sodium Level 138 mmol/L (136-145)
[2020-05-26] MEDS: HYDROCODONE/APAP 7.5/325 MG TAB PO PRN (07:52)
[2020-05-26 08:53] LABS: Platelet Estimate ADEQ
[2020-05-26 08:54] VITALS: BP 123/82; TEMP 97.4
[2020-05-26 08:54] LABS: Blood Morphology Comment NOT SEEN (NOT SEEN)
== END 2020-05-26 08:59 | disposition home or self-care (01) | DRG 418 ==
LOC: ER 06:10 → ERHOLD 08:08 → 2ND 09:22 → OBSVTOIN 05-26 07:49
PROVIDERS: ADMIT Surgery; ATTEND Surgery
PROC: BF101ZZ Fluoroscopy of Bile Ducts using Low Osmolar Contrast (ICD-10-PCS; 2020-05-25)
PROC: 0FT44ZZ Resection of Gallbladder, Percutaneous Endoscopic Approach (ICD-10-PCS; principal; 2020-05-25 12:45)
DX: K80.00 Calculus of gallbladder with acute cholecystitis without obstruction (principal); K82.1 Hydrops of gallbladder
CPT/HCPCS: 36415; 76705; 80048; 80076; 81003; 81025; 83690; 85025; 88304; 94010; 96361; 96365; 96375; 99285; G0378; J0330; J1100; J2175; J2250; J2405; J2543; J2550; J2704; J2710; J3010; J7030; J7120

== ENCOUNTER 2020-07-01 07:48 | Emergency (ER) | payer SELFPAY ==
[2020-07-01] MEDS ORDERED: MAGNES/ALUMIN/SIMET 30ML UCUP ONE (08:25)
[2020-07-01] MEDS ORDERED: LIDOCAINE VISCOUS 2% SOLN 15 ML UDC ONE (08:26)
[2020-07-01] MEDS ORDERED: MEPERIDINE HCL 25 MG/ML SYR ONE (08:26)
[2020-07-01] MEDS ORDERED: ONDANSETRON 4 MG/2 ML VIAL ONE (08:26)
[2020-07-01 08:31] LABS: Absolute Lymphocytes (CBC) 1.7 K/uL (0.7-4.9); Basophils % 0.3 % (0-1.3); Hematocrit 40.7 % (36.0-45.0); Lymphocytes % 28.5 % (15.3-44.8); MPV 7.3 fL (7.6-11.3); RBC Red Blood Cell Count 4.58 M/uL (3.86-4.86)
--- NOTE | 2020-07-01 08:51 | RAD REPORT ---
EXAM DESCRIPTION: CT - Abdomen Pelvis W Contrast - 07/01/2020 8:37 am CLINICAL HISTORY: 1 month s/p [place], epigastric and RUQ pain;Abd pain COMPARISON: Abdomen Pelvis W Contrast dated 05/19/2020 TECHNIQUE: Biphasic, helical CT imaging of the abdomen and pelvis was performed following 100 ml non -ionic IV contrast. No oral contrast. All CT scans are performed using dose optimization technique as appropriate and may include automated exposure control or mA/KV adjustment according to patient size. FINDINGS: No suspicious findings in the lung bases. The liver, spleen, and pancreas show no suspicious findings. Cholecystectomy clips are present. There is no hematoma, abscess or other abnormality in the gallbladder fossa. No suspicion for bile leak. N o biliary tree dilatation. Symmetric renal function is seen with no hydronephrosis or suspicious renal mass. No pyelonephritis o r acute parenchymal process. No bladder abnormalities. No adrenal abnormalities. Uterus and ovaries s how no suspicious findings. Well-positioned IUD is in place. No dilated bowel loops or bowel wall thickening. No free air, free fluid or inflammatory stranding i n the peritoneal or retroperitoneal spaces. No intraabdominal mass or bulky lymphadenopathy. Postsurgical changes are noted in the periumbilical region from recent laparoscopic cholecystectomy. There is soft tissue thickening and stranding approximately 3 cm in overall diameter. Within the stra nding there is no evidence for abscess. No air. Patient has a small fat only umbilical hernia at this site. These postsurgical changes are still within range of normal for the recent cholecystectomy. No suspicious bony findings. IMPRESSION: Soft tissue thickening and minimal stranding in the midline abdominal wall at the umbili cus an in the adjacent deep subcutaneous fatty tissues. This is still within range of normal for rece nt surgery. Within and adjacent to the postsurgical change there is no abscess or abnormal air collection. No abnormality in the gallbladder fossa. No suspicion for bile leak.
[2020-07-01 08:56] LABS: ALT/SGPT 26 U/L (12-78); AST/SGOT 15 U/L (15-37); Albumin 3.6 g/dL (3.4-5.0); Alkaline Phosphatase 100 U/L (45-117); BUN Blood Urea Nitrogen 9 mg/dL (7-18); Bicarbonate 25 mmol/L (21-32); Bilirubin Direct 0.1 mg/dL (0-0.2); Bilirubin Total 0.5 mg/dL (0.2-1.0); Glucose Level 97 mg/dL (74-106); Lipase 81 U/L (73-393); Potassium 3.9 mmol/L (3.5-5.1); Protein, Total 7.3 g/dL (6.4-8.2); Sodium Level 141 mmol/L (136-145)
--- NOTE | 2020-07-01 09:06 | EDPHYS ---
Physician Documentation [facility] Name: Simin Doe Age: 39 yrs Sex: Female : 1980 Arrival Date: 07/01/2020 Time: 07:49 Bed 6 Private MD: ED Physician Idris Aviles HPI: 07/01 08:24 This 39 yrs old Female presents to ER via Ambulatory with complaints of rn Abdominal Pain. 08:24 The patient presents with abdominal pain in the epigastric area, in the right upper rn quadrant. Onset: The symptoms/episode began/occurred 1 month(s) ago. Associated signs and symptoms: Pertinent positives: nausea, Pertinent negatives: anorexia, blood in stools, diarrhea, fever, shortness of breath. The symptoms are described as achy, crampy, intermittent. Modifying factors: The symptoms are alleviated by nothing, the symptoms are aggravated by nothing. Severity of pain: At its worst the pain was moderate in the emergency department the pain has improved. The patient has not experienced similar symptoms in the past. The patient has been recently seen by a physician:. Reports had gallbladder removed 1 month ago, since then having upper abd pain, assoc with nausea, no vomiting. No trauma. Seen by Dr. Castañeda after surgery, thought to be post-op pain, and was planning to get outpt ct abdomen, but patient came here. . 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 - Social history:: Smoking status: Patient denies any tobacco usage or history of. - Family history:: not pertinent. - Hospitalizations: : No recent hospitalization is reported. ROS: 08:24 Constitutional: Negative for fever, chills, and weight loss, Eyes: Negative for injury, rn pain, redness, and discharge, Neck: Negative for injury, pain, and swelling, Cardiovascular: Negative for chest pain, palpitations, and edema, Respiratory: Negative for shortness of breath, cough, wheezing, and pleuritic chest pain, Abdomen/GI: + abd pain MS/Extremity: Negative for injury and deformity, Skin: Negative for injury, rash, and discoloration, Neuro: Negative for headache, weakness, numbness, tingling, and seizure. Exam: 08:24 Constitutional: This is a well developed, well nourished patient who is awake, alert, rn and in no acute distress. Head/Face: Normocephalic, atraumatic. Cardiovascular: Regular rate and rhythm. No pulse deficits. Respiratory: No increased work of breathing, no retractions or nasal flaring. Abdomen/GI: soft, mild RUQ and epigastric tenderness, non-distended Skin: Warm, dry MS/ Extremity: Pulses equal, no cyanosis. Neurovascular intact. Full, normal range of motion. Equal circumference. Neuro: Awake and alert, GCS 15 Vital Signs: 07:57 BP 130 / 85; Pulse 70; Resp 15; Temp 97.9; Pulse Ox 100% on R/A; Weight 81.65 kg; ss Height 4 ft. 9 in. (144.78 cm); Pain 8/10; 08:15 BP 126 / 92; Pulse 67; Resp 17; Pulse Ox 100% on R/A; Pain 8/10; tw2 08:59 BP 118 / 77; Pulse 71; Resp 16; Temp 97.1(TE); Pulse Ox 100% on R/A; mh5 07:57 Body Mass Index 38.95 (81.65 kg, 144.78 cm) ss MDM: 07:57 Patient medically screened. rn 09:02 Differential diagnosis: gastritis, non-specific abd pain, pancreatitis, Peptic Ulcer rn Disease, bile leak, post-operative complication, abscess, GERD, pancreatitis, post-operative pain. Data reviewed: vital signs, nurses notes, lab test result(s), radiologic studies, CT scan, and as a result, I will discharge patient. Counseling: I had a detailed discussion with the patient and/or guardian regarding: the historical points, exam findings, and any diagnostic results supporting the discharge/admit diagnosis, lab results, radiology results, the need for outpatient follow up, to return to the emergency department if symptoms worsen or persist or if there are any questions or concerns that arise at home. Special discussion: Based on the patient's Hx, exam, and Dx evaluation, there is no indication for emergent surgery or inpatient Tx. It is understood by the patient/guardian that if the Sx's persist or worsen they need to return immediately for re-evaluation. I discussed with the patient/guardian in detail that at this point there is no indication for admission to the hospital. It is understood, however, that if the symptoms persist or worsen the patient needs to return immediately for re-evaluation. ED course: No acute findings on ct abdomen, still post-operative inflammation, stable vitals, will dc home with local heat and motrin. Return precautions given and understood. . 07/01 08:07 Order name: Basic Metabolic Panel rn 07/01 08:07 Order name: CBC with Diff; Complete Time: 08:53 rn 07/01 08:07 Order name: Hepatic Function rn 07/01 08:07 Order name: Lipase rn 07/01 08:07 Order name: CT Abd/Pelvis - IV Contrast Only; Complete Time: 08:53 rn 07/01 08:07 Order name: IV Saline Lock; Complete Time: 08:25 rn 07/01 08:07 Order name: Labs collected and sent; Complete Time: 08:25 rn Administered Medications: 08:15 Drug: Zofran (Ondansetron) 4 mg Route: IVP; Site: right antecubital; tw2 09:20 Follow up: Response: No adverse reaction tw2 08:18 Drug: Demerol 25 mg Route: IVP; Site: right antecubital; tw2 09:21 Follow up: Response: No adverse reaction; Pain is decreased; RASS: Alert and Calm (0) tw2 08:45 Drug: GI Cocktail without - (Maalox Suspension 30 ml, Lidocaine Liquid 2 % 15 tw2 ml) Route: PO; 09:21 Follow up: Response: No adverse reaction tw2 Disposition: 07/01/20 09:06 Discharged to Home. Impression: Upper abdominal pain, unspecified. - Condition is Stable. - Discharge Instructions: Abdominal Pain, Adult, Pain Relief Preoperatively and Postoperatively. - Medication Reconciliation Form, Thank You Letter, Antibiotic Education, Prescription Opioid Use, Work release form form. - Follow up: Private Physician; When: As needed; Reason: Recheck today's complaints, Re-evaluation by your physician. - Problem is new. - Symptoms have improved. Signatures: Dispatcher [employer] EDIdris Moura MD MD rn Smirch, Shelby, RN RN ss Wise, Tara, RN RN tw2 Corrections: (The following items were deleted from the chart) : 09:06 07/01/2020 09:06 Discharged to Home. Impression: Upper abdominal pain, tw2 unspecified. Condition is Stable. Forms are Medication Reconciliation Form, Thank You Letter, Antibiotic Education, Prescription Opioid Use. Follow up: Private Physician; When: As needed; Reason: Recheck today's complaints, Re-evaluation by your physician. Problem is new. Symptoms have improved. rn
--- NOTE | 2020-07-01 09:06 | ER ---
Nurse's Notes [facility] Name: Simin Doe Age: 39 yrs Sex: Female : 1980 Arrival Date: 07/01/2020 Time: 07:49 Bed 6 Private MD: Diagnosis: Upper abdominal pain, unspecified Presentation: 07/01 07:57 Chief complaint: Patient states: abd pain from umbilicus to R side of abdomen since before having a cholecystectomy in April. Pt reports that she called Dr. Castañeda 2 weeks ago who told her that the pain is to be expected after surgery. Pt is concerned because she feels as if they pain would be better by now. Coronavirus screen: Client denies travel out of the [place] in the last 14 days. Ebola Screen: Patient denies exposure to infectious person. Patient denies travel to an Ebola-affected area in the 21 days before illness onset. Initial Sepsis Screen: Does the patient meet any 2 criteria? No. Patient's initial sepsis screen is negative. Does the patient have a suspected source of infection? No. Patient's initial sepsis screen is negative. Risk Assessment: Do you want to hurt yourself or someone else? Patient reports no desire to harm self or others. Onset of symptoms was April 2020. 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 - Social history:: Smoking status: Patient denies any tobacco usage or history of. - Family history:: not pertinent. - Hospitalizations: : No recent hospitalization is reported. Screenin:15 Abuse screen: Denies threats or abuse. Nutritional screening: No deficits noted. tw2 Tuberculosis screening: No symptoms or risk factors identified. Fall Risk None identified. Assessment: 08:00 General: Appears in no apparent distress. uncomfortable, well groomed, Behavior is tw2 calm, cooperative, appropriate for age. Pain: Complains of pain in abdomen. Neuro: Level of Consciousness is awake, alert, obeys commands, Oriented to person, place, time, situation. Cardiovascular: Heart tones S1 S2 Patient's skin is warm and dry. Respiratory: Airway is patent Respiratory effort is even, unlabored, Respiratory pattern is regular, symmetrical, Breath sounds are clear bilaterally. GI: Bowel sounds present X 4 quads. Abd is soft X 4 quads Reports lower abdominal pain, upper abdominal pain. : No signs and/or symptoms were reported regarding the genitourinary system. EENT: No signs and/or symptoms were reported regarding the EENT system. Derm: No signs and/or symptoms reported regarding the dermatologic system. Musculoskeletal: Range of motion: intact in all extremities. 09:25 Reassessment: Patient appears in no apparent distress at this time. Patient and/or tw2 family updated on plan of care and expected duration. Pain level reassessed. Patient is alert, oriented x 3, equal unlabored respirations, skin warm/dry/pink. Patient states feeling better. Patient states symptoms have improved. Vital Signs: 07:57 BP 130 / 85; Pulse 70; Resp 15; Temp 97.9; Pulse Ox 100% on R/A; Weight 81.65 kg; Height 4 ft. 9 in. (144.78 cm); Pain 8/10; 08:15 BP 126 / 92; Pulse 67; Resp 17; Pulse Ox 100% on R/A; Pain 8/10; tw2 08:59 BP 118 / 77; Pulse 71; Resp 16; Temp 97.1(TE); Pulse Ox 100% on R/A; mh5 07:57 Body Mass Index 38.95 (81.65 kg, 144.78 cm) ED Course: 07:49 Patient arrived in ED. as 07:52 Bed in low position. Call light in reach. Pulse ox on. NIBP on. Lights dimmed. Warm tw2 blanket given. 07:57 Idris Aviles MD is Attending Physician. rn 08:00 Triage completed. ss 08:01 Lucy Jacinto RN is Primary Nurse. tw2 08:01 Arm band placed on right wrist. 08:15 Initial lab(s) drawn, by nd, sent to lab. Inserted saline lock: 20 gauge in right tw2 antecubital area, using aseptic technique. Blood collected. 08:37 CT Abd/Pelvis - IV Contrast Only In Process Unspecified. EDMS 09:24 No provider procedures requiring assistance completed. IV discontinued, intact, tw2 bleeding controlled, No redness/swelling at site. Pressure dressing applied. Administered Medications: 08:15 Drug: Zofran (Ondansetron) 4 mg Route: IVP; Site: right antecubital; tw2 09:20 Follow up: Response: No adverse reaction tw2 08:18 Drug: Demerol 25 mg Route: IVP; Site: right antecubital; tw2 09:21 Follow up: Response: No adverse reaction; Pain is decreased; RASS: Alert and Calm (0) tw2 08:45 Drug: GI Cocktail without - (Maalox Suspension 30 ml, Lidocaine Liquid 2 % 15 tw2 ml) Route: PO; 09:21 Follow up: Response: No adverse reaction tw2 Outcome: 09:06 Discharge ordered by . rn 09:24 Discharged to home ambulatory. tw2 09:24 Condition: stable 09:24 Discharge instructions given to patient, Instructed on discharge instructions, follow up and referral plans. Demonstrated understanding of instructions, follow-up care. 09:25 Patient left the ED. tw2 Signatures: Dispatcher [employer] EDMS Dalia Escalante Roman, MD MD rn Smirch, Shelby, RN RN ss Wise, Tara, RN RN 2 Ana Escalante [facility] Corrections: (The following items were deleted from the chart) 09:03 08:59 BP 118 / 77; Pulse 71bpm; Resp 16bpm; Pulse Ox 100% RA; mh5 mh5
[2020-07-01 09:41] VITALS: O2SAT 100
[2020-07-01 09:44] VITALS: BP 118/77; TEMP 97.1
== END 2020-07-01 09:25 | disposition home or self-care (01) ==
LOC: ER 07:48
DX: R10.10 Upper abdominal pain, unspecified (principal); Z90.49 Acquired absence of other specified parts of digestive tract; F41.9 Anxiety disorder, unspecified
CPT/HCPCS: 36415; 74177; 80048; 80076; 82565; 83690; 85025; 96374; 96375; 99284; J2175; J2405; Q9967

== ENCOUNTER 2021-08-17 20:25 | Emergency (ER) | payer BC ==
--- OUTSIDE RECORDS SUMMARY | 2021-08-17 20:27 | XMS REPORT | Continuity of Care Document ---
:1980 Author Organization [facility] t Address [address] [place] [address] [address] [place] [address] Care Team Providers Name Role Phone ROMAINE MISTRY Attending Clinician Unavailable Lab, Fam Pob I Attending Clinician Unavailable Kanu Christensen Attending Clinician Kanu ARMSTRONG Attending Clinician Unavailable Payers Payer Name Policy Type Policy Number Effective Date Expiration Date S ource Problems Condition Condition Condition Status Onset Resolution Last Treating Co mments Source Name Details Category Date Date Treatment Clinician Date No known No known Disease Unive rs active active ity of problems problems [facility] Allergies, Adverse Reactions, Alerts Allergy Allergy Status Severity Reaction(s) Onset Inactive Treating Comm ents Source Name Type Date Date Clinician NO KNOWN Drug Active Univers ALLERGIE Class ity of [facility] Social History Social Habit Start Date Stop Date Quantity Comments Source Exposure to Not sure [facility] SARS-CoV-2 (event) [facility] Sex Assigned At [birth year] [facility] 00:00:00 00:00:00 [facility] Smoking Status Start Date Stop Date Source Never smoker [facility] Medications Ordered Filled Start Stop Current Ordering Indication Dosage Frequency Signature Comments Components Source Medication Medication Date Date Medication? Clinician (SIG) Name Name No known No Univers medications [facility] Procedures This patient has no known procedures. Encounters Start End Encounter Admission Attending Care Care Encounter Source Date/Time Date/Time Type Type Clinicians Facility Department ID 2021-02-08 2021-02-08 Outpatient Jason MISTRY [facility] [id number] [facility] 11:30:00 11:30:00 [facility] 2021-01-20 2021-01-20 Outpatient Jason MISTRY [facility] [id number] [facility] 17:50:00 17:50:00 [facility] 2020-12-18 2020-12-18 Laboratory Lab, Adc Fam Pob I [facility] 1.2. [id number] Univers 17:33:43 17:53:43 Only Hien [facility] [id number] [facility] [id number] Nav as Professio [phone] [address] 2020-12-18 2020-12-18 Outpatient [facility] [id number] Univers 17:40:00 17:40:00 [id number] ity [facility] 2020-12-18 2020-12-18 Outpatient R PATTI [facility] [id number] Univers 17:40:00 17:40:00 HIEN lopez [facility] Results This patient has no known results.
[2021-08-17 21:13] LABS: Absolute Lymphocytes (CBC) 3.1 K/uL (0.7-4.9); Basophils % 0.4 % (0-1.3); MPV 7.1 fL (7.6-11.3); RBC Red Blood Cell Count 4.85 M/uL (3.86-4.86)
[2021-08-17 21:15] LABS: Protime INR 1.02
[2021-08-17] MEDS ORDERED: PROMETHAZINE INJ 25 MG/ML AMP ONE (21:19)
[2021-08-17] MEDS ORDERED: NA CHLORIDE 0.9% 1,000 ML ONE (21:20)
[2021-08-17 21:31] LABS: ALT/SGPT 25 U/L (12-78); AST/SGOT 12 U/L (15-37); Albumin 3.6 g/dL (3.4-5.0); Alkaline Phosphatase 80 U/L (45-117); BUN Blood Urea Nitrogen 9 mg/dL (7-18); Bicarbonate 21 mmol/L (21-32); Bilirubin Direct < 0.1 mg/dL (0-0.2); Bilirubin Total 0.3 mg/dL (0.2-1.0); Glucose Level 132 mg/dL (74-106); Magnesium 2.1 mg/dL (1.8-2.4); NT PRO-BNP 8 pg/mL (<125); Phosphorus 2.6 mg/dL (2.5-4.9); Potassium 3.2 mmol/L (3.5-5.1); Protein, Total 7.5 g/dL (6.4-8.2); Sodium Level 138 mmol/L (136-145); Troponin (Emerg Dept Use Only) < 0.02 ng/mL (0.0-0.045)
--- NOTE | 2021-08-17 21:31 | RAD REPORT ---
EXAM DESCRIPTION: CT - Head Brain Wo Cont - 08/17/2021 9:15 pm CLINICAL HISTORY: DIZZINESS COMPARISON: <Comparisons> TECHNIQUE: All CT scans are performed using dose optimization technique as appropriate and may inclu de automated exposure control or mA/KV adjustment according to patient size. FINDINGS: No intracranial hemorrhage, hydrocephalus or extra-axial fluid collection.No areas of brai n edema or evidence of midline shift. The paranasal sinuses and mastoids are clear. The calvarium is intact. IMPRESSION: No acute intracranial abnormality.
--- NOTE | 2021-08-17 21:32 | RAD REPORT ---
EXAM DESCRIPTION: RAD - Chest Single View - 08/17/2021 9:25 pm CLINICAL HISTORY: CHEST PAIN COMPARISON: No comparisonsChest Single View dated 05/19/2020; CHEST PA AND LAT 2 VIEW dated 10/16/2014 FINDINGS: Lines: None. Lungs: Decreased lung volumes with mild basilar atelectasis. Pleural: No significant pleural effusions or pneumothorax. Cardiac: The heart size is within normal limits. Bones: No acute fractures. Other: IMPRESSION: Low lung volumes with basilar atelectasis but otherwise no acute process.
[2021-08-17 21:33] LABS: Urine Blood Negative (Negative); Urine Glucose Negative (Negative); Urine Protein Negative (Negative)
[2021-08-17] MEDS ORDERED: DIAZEPAM 5 MG TABLET ONE (23:03)
[2021-08-17] MEDS ORDERED: POTASSIUM CL SA 10 MEQ TAB PO ONE (23:03)
--- NOTE | 2021-08-18 01:22 | EDPHYS ---
Physician Documentation [facility] Name: Simin Doe Age: 41 yrs Sex: Female : 1980 Arrival Date: 08/17/2021 Time: 20:28 Bed 15 Private MD: ED Physician Getachew Dia HPI: 08/17 21:06 This 41 yrs old Female presents to ER via Ambulatory with complaints of Chest mh7 Pain > 30 y/o, Dizziness. 21:06 The patient or guardian reports chest pain that is located primarily in the substernal mh7 area. The pain radiates to back. Associated signs and symptoms: Pertinent positives: dizziness, nausea, shortness of breath, Pertinent negatives: abdominal pain, cough, diaphoresis, headache, lower extremity pain, lower extremity swelling, lightheadedness, near syncope, palpitations, recent travel, syncope, vomiting. The chest pain is described as sharp. Duration: The patient or guardian reports multiple episodes, that are intermittent, that wax and wane, with no pattern. Modifying factors: The symptoms are alleviated by nothing. the symptoms are aggravated by movement. Severity of pain: At its worst the pain was moderate today, in the emergency department the pain has improved moderately. Patient states that she started having dizziness with spinning sensation, chest pain that radiates to her back around 5:30 PM today while she was cooking dinner. She also had some nausea, shortness of breath and numbness tingling sensation both hands. She denies any fever, cough, headache, abdominal pain, vomiting, diarrhea, or focal weakness.. 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 - Social history:: Smoking status: Patient denies any tobacco usage or history of. Patient uses alcohol, occasionally. ROS: 21:06 Constitutional: Negative for fever, chills, and weight loss, Eyes: Negative for injury, mh7 pain, redness, and discharge, ENT: Negative for injury, pain, and discharge, Neck: Negative for injury, pain, and swelling, : Negative for injury, bleeding, discharge, and swelling, MS/Extremity: Negative for injury and deformity, Skin: Negative for injury, rash, and discoloration, Neuro: Negative for headache, weakness, numbness, tingling, and seizure, Psych: Negative for depression, anxiety, suicide ideation, homicidal ideation, and hallucinations, Allergy/Immunology: Negative for hives, rash, and allergies, Endocrine: Negative for neck swelling, polydipsia, polyuria, polyphagia, and marked weight changes, Hematologic/Lymphatic: Negative for swollen nodes, abnormal bleeding, and unusual bruising. Exam: 21:06 Head/Face: Normocephalic, atraumatic. Eyes: Pupils equal round and reactive to light, mh7 extra-ocular motions intact. Lids and lashes normal. Conjunctiva and sclera are non-icteric and not injected. Cornea within normal limits. Periorbital areas with no swelling, redness, or edema. ENT: Nares patent. No nasal discharge, no septal abnormalities noted. Tympanic membranes are normal and external auditory canals are clear. Oropharynx with no redness, swelling, or masses, exudates, or evidence of obstruction, uvula midline. Mucous membranes moist. Neck: Trachea midline, no thyromegaly or masses palpated, and no cervical lymphadenopathy. Supple, full range of motion without nuchal rigidity, or vertebral point tenderness. No Meningismus. Chest/axilla: Normal chest wall appearance and motion. Nontender with no deformity. No lesions are appreciated. Cardiovascular: Regular rate and rhythm with a normal S1 and S2. No gallops, murmurs, or rubs. Normal PMI, no JVD. No pulse deficits. Respiratory: Lungs have equal breath sounds bilaterally, clear to auscultation and percussion. No rales, rhonchi or wheezes noted. No increased work of breathing, no retractions or nasal flaring. Abdomen/GI: Soft, non-tender, with normal bowel sounds. No distension or tympany. No guarding or rebound. No evidence of tenderness throughout. Back: No spinal tenderness. No costovertebral tenderness. Full range of motion. Skin: Warm, dry with normal turgor. Normal color with no rashes, no lesions, and no evidence of cellulitis. MS/ Extremity: Pulses equal, no cyanosis. Neurovascular intact. Full, normal range of motion. Neuro: Awake and alert, GCS 15, oriented to person, place, time, and situation. Cranial nerves II-XII grossly intact. Motor strength 5/5 in all extremities. Sensory grossly intact. Cerebellar exam normal. Normal gait. 21:06 Constitutional: The patient appears in no acute distress, alert, awake, anxious. 21:06 Psych: Behavior/mood is cooperative, anxious, Oriented to person, place, time, Patient has no thoughts/intents to harm self or others. Judgement / Insight is normal. Memory is normal. Delusions/hallucinations are not present. Vital Signs: 20:38 BP 128 / 100; Pulse 74; Resp 18; Temp 98.1(O); Pulse Ox 100% on R/A; Weight 86.18 kg lp1 (R); Height 4 ft. 9 in. (144.78 cm); Pain 8/10; 20:46 BP 140 / 105; lp1 21:07 BP 130 / 90; Pulse 78; Resp 16; Temp 98.7; Pulse Ox 98% 0 lpm ; Weight 90.72 kg; Height sv1 4 ft. 10 in. (147.32 cm); Pain 7/10; 23:38 BP 124 / 85; Pulse 76; Resp 21; Pulse Ox 100% 0 lpm ; Pain 0/10; sv1 08/18 00:33 BP 125 / 77; Pulse 83; Resp 16; Pulse Ox 96% 0 lpm ; Pain 0/10; sv1 01:35 BP 117 / 86; Pulse 86; Resp 28; Temp 98.1; Pulse Ox 100% 0 lpm ; sv1 08/17 21:07 Body Mass Index 41.80 (90.72 kg, 147.32 cm) sv1 MDM: 01:17 Differential diagnosis: acute myocardial infarction, acute pericarditis, anxiety, mh7 coronary artery disease chest wall pain, congestive heart failure costochondritis, gastritis, gastroesophageal reflux disease (GERD), pericarditis, pleurisy, pneumonia, pulmonary embolus, Dizziness, vertigo. HEART Score: History: Slightly Suspicious (0), ECG: Normal (0), Age: < or = 45 years (0), Risk Factors: No Risk Factors Known (0), Troponin: < or = 1 x Normal Limit (0), Total Score = 0. Data reviewed: vital signs, nurses notes, old medical records, lab test result(s), cardiac enzymes, CBC, electrolytes, urinalysis, EKG, radiologic studies, CT scan, plain films. Data interpreted: Pulse oximetry: on room air is 96 %. Interpretation: normal. Counseling: I had a detailed discussion with the patient and/or guardian regarding: the historical points, exam findings, and any diagnostic results supporting the discharge/admit diagnosis, lab results, radiology results, the need for outpatient follow up, to return to the emergency department if symptoms worsen or persist or if there are any questions or concerns that arise at home. Response to treatment: the patient's symptoms have resolved after treatment, the patient's blood pressure is in an acceptable range, mental status has returned to baseline, the patient no longer shows bradycardia, the patient is not short of breath, the patient is not tachycardic, the patient's pain is gone, the patient's temperature has normalized, the patient is now symptom free, patient is well hydrated. 01:21 Patient medically screened. [facility] 08/17 21:00 Order name: Basic Metabolic Panel [facility] 08/17 21:00 Order name: CBC with Diff; Complete Time: 21:21 [facility] 08/17 21:00 Order name: LFT's [facility] 08/17 21:00 Order name: Magnesium; Complete Time: 21:42 [facility] 08/17 21:00 Order name: NT PRO-BNP; Complete Time: 21:42 [facility] 08/17 21:00 Order name: PT-INR; Complete Time: 21:21 [facility] 08/17 21:00 Order name: Troponin (emerg Dept Use Only); Complete Time: 21:42 [facility] 08/17 21:01 Order name: Basic Metabolic Panel; Complete Time: 21:42 [facility] 08/17 21:01 Order name: Liver (Hepatic) Function; Complete Time: 21:42 [facility] 08/17 21:05 Order name: Phosphorus [facility] 08/17 21:20 Order name: Phosphorus; Complete Time: 21:42 [facility] 08/17 21:33 Order name: Urine Dipstick-Ancillary [facility] 08/17 22:35 Order name: D-Dimer; Complete Time: 23:44 [facility] 08/17 20:48 Order name: EKG - Nurse/Tech; Complete Time: 20:48 lp1 08/17 20:48 Order name: EKG; Complete Time: 20:48 lp1 08/17 21:00 Order name: XRAY Chest (1 view); Complete Time: 21:42 7 08/17 21:00 Order name: Cardiac monitoring; Complete Time: 21:15 7 08/17 21:00 Order name: IV Saline Lock; Complete Time: 21:04 7 08/17 21:00 Order name: Labs collected and sent; Complete Time: 21:04 7 08/17 21:00 Order name: O2 Per Protocol; Complete Time: 21:04 7 08/17 21:00 Order name: O2 Sat Monitoring; Complete Time: 21:04 7 08/17 21:00 Order name: Urine Dipstick-Ancillary (obtain specimen); Complete Time: 23:20 7 08/17 21:00 Order name: CT Head Brain wo Cont; Complete Time: 21:42 7 08/17 23:21 Order name: Urine --Ancillary (enter results); Complete Time: 00:00 [facility] 08/18 00:00 Order name: Troponin (emerg Dept Use Only); Complete Time: 01:13 7 08/17 21:00 Order name: Urine Test (obtain specimen); Complete Time: 23:20 mh7 Administered Medications: 08/17 21:32 Drug: Phenergan (promethazine) 12.5 mg Route: IVP; Site: right upper arm; sv1 22:59 Follow up: Response: Nausea is decreased sv1 08/18 01:02 Follow up: Response: No adverse reaction; Nausea is decreased sv1 08/17 21:33 Drug: NS 0.9% 1000 ml Route: IV; Rate: 1000 ml; Site: right upper arm; sv1 23:00 Follow up: IV Status: Completed infusion; IV Intake: 1000ml sv1 23:07 Drug: Potassium Chloride 40 mEq Route: PO; sv1 23:24 Follow up: Response: No adverse reaction sv1 23:07 Drug: Valium (diazepam) 5 mg Route: PO; sv1 23:24 Follow up: Response: No adverse reaction; Anxiety decreased sv1 Disposition Summary: 08/18/21 01:21 Discharge Ordered Location: Home [facility] Problem: new mh7 Symptoms: have improved mh7 Condition: Stable [facility] Diagnosis - Vertigo [facility] - Chest pain, unspecified 7 Followup: [facility] - With: Private Physician - When: 1 - 2 days - Reason: Worsening of condition, Recheck today's complaints, Continuance of care, Re-evaluation by your physician Followup: [facility] - With: Cary Hoang MD - When: 1 - 2 days - Reason: Worsening of condition, Recheck today's complaints Discharge Instructions: - Discharge Summary Sheet [facility] - Nonspecific Chest Pain, Adult, [id number] [facility] - Vertigo, [id number] [facility] Forms: - Medication Reconciliation Form [facility] - Thank You Letter [facility] - Antibiotic Education [facility] - Prescription Opioid Use [facility] Prescriptions: - Meclizine 25 mg Oral Tablet - take 1 tablet by ORAL route every 8 hours As needed; 15 tablet; Refills: 0, [facility] Product Selection Permitted Signatures: Dispatcher [employer] Ida Cadet RN RN lp1 Getachew Dia MD MD [facility] Allen Marie RN RN sv1 Corrections: (The following items were deleted from the chart) 21:19 21:06 Phosphorus ordered. [facility] EDMS
--- NOTE | 2021-08-18 01:22 | ER ---
Nurse's Notes [facility] Name: Simin Doe Age: 41 yrs Sex: Female : 1980 Arrival Date: 08/17/2021 Time: 20:28 Bed 15 Private MD: Diagnosis: Vertigo;Chest pain, unspecified Presentation: 08/17 20:35 Chief complaint: Patient states: "About 1730, I started to feel dizzy, nauseous, hands lp1 getting numb, and my chest started hurting"; Reports this has happened before and K+ was low. Coronavirus screen: At this time, the client does not indicate any symptoms associated with coronavirus-19. Ebola Screen: No symptoms or risks identified at this time. Risk Assessment: Do you want to hurt yourself or someone else? Patient reports no desire to harm self or others. Onset of symptoms was August 17, 2021 at 17:30. 20:35 Method Of Arrival: Ambulatory lp1 20:35 Acuity: YVONNE 3 lp1 20:38 Initial Sepsis Screen: Does the patient meet any 2 criteria? No. Patient's initial lp1 sepsis screen is negative. Does the patient have a suspected source of infection? No. Patient's initial sepsis screen is negative. Triage Assessment: 21:10 General: Appears distressed, uncomfortable. General: Behavior is cooperative. Pain: sv1 Complains of pain in back and chest. 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 - Social history:: Smoking status: Patient denies any tobacco usage or history of. Patient uses alcohol, occasionally. Screenin:09 Abuse screen: none. Nutritional screening: No deficits noted. Tuberculosis screening: sv1 No symptoms or risk factors identified. Fall Risk None identified. Assessment: 21:11 Cardiovascular: No deficits noted. Rhythm is sinus rhythm. sv1 21:12 Pain: Pain does not radiate. Pain began suddenly. sv1 21:16 Reassessment: To CT via yareli. sv1 08/18 01:37 Reassessment: All labs completed. The patient stated she feels better. Cleared for sv1 discharge to home by the provider.. Vital Signs: 08/17 20:38 BP 128 / 100; Pulse 74; Resp 18; Temp 98.1(O); Pulse Ox 100% on R/A; Weight 86.18 kg lp1 (R); Height 4 ft. 9 in. (144.78 cm); Pain 8/10; 20:46 BP 140 / 105; lp1 21:07 BP 130 / 90; Pulse 78; Resp 16; Temp 98.7; Pulse Ox 98% 0 lpm ; Weight 90.72 kg; Height sv1 4 ft. 10 in. (147.32 cm); Pain 7/10; 23:38 BP 124 / 85; Pulse 76; Resp 21; Pulse Ox 100% 0 lpm ; Pain 0/10; sv1 08/18 00:33 BP 125 / 77; Pulse 83; Resp 16; Pulse Ox 96% 0 lpm ; Pain 0/10; sv1 01:35 BP 117 / 86; Pulse 86; Resp 28; Temp 98.1; Pulse Ox 100% 0 lpm ; sv1 08/17 21:07 Body Mass Index 41.80 (90.72 kg, 147.32 cm) sv1 ED Course: 08/17 20:28 Patient arrived in ED. bp1 20:34 Arm band placed on right wrist. lp1 20:36 Triage completed. lp1 20:51 Getachew Dia MD is Attending Physician. mh7 21:04 Inserted saline lock: 22 gauge in right forearm, using aseptic technique. Blood ds4 collected. 21:07 Allen Marie, REJI is Primary Nurse. sv1 21:09 Patient has correct armband on for positive identification. Bed in low position. Call sv1 light in reach. Side rails up X 1. color television console monitor on. 21:11 Inserted saline lock: 22 gauge in right. Patient maintains SpO2 saturation greater than sv1 95% on room air. 21:14 CT Head Brain wo Cont In Process Unspecified. EDMS 21:14 Phosphorus Sent. sv1 21:15 Basic Metabolic Panel Sent. sv1 21:15 Liver (Hepatic) Function Sent. sv1 21:15 Basic Metabolic Panel Sent. sv1 21:15 LFT's Sent. sv1 21:15 Magnesium Sent. sv1 21:15 NT PRO-BNP Sent. sv1 21:25 XRAY Chest (1 view) In Process Unspecified. EDMS 08/18 01:03 Troponin (emerg Dept Use Only) Sent. sv1 01:20 Cary Hoang MD is Referral Physician. [facility] 01:37 No provider procedures requiring assistance completed. IV discontinued. sv1 Administered Medications: 08/17 21:32 Drug: Phenergan (promethazine) 12.5 mg Route: IVP; Site: right upper arm; sv1 22:59 Follow up: Response: Nausea is decreased sv1 08/18 01:02 Follow up: Response: No adverse reaction; Nausea is decreased sv1 08/17 21:33 Drug: NS 0.9% 1000 ml Route: IV; Rate: 1000 ml; Site: right upper arm; sv1 23:00 Follow up: IV Status: Completed infusion; IV Intake: 1000ml sv1 23:07 Drug: Potassium Chloride 40 mEq Route: PO; sv1 23:24 Follow up: Response: No adverse reaction sv1 23:07 Drug: Valium (diazepam) 5 mg Route: PO; sv1 23:24 Follow up: Response: No adverse reaction; Anxiety decreased sv1 Intake: 23:00 IV: 1000ml; Total: 1000ml. sv1 Outcome: 08/18 01:21 Discharge ordered by . [facility] 01:37 Discharged to home ambulatory. sv1 01:37 Condition: improved 01:37 Discharge instructions given to patient. 01:40 Patient left the ED. sv1 Signatures: Dispatcher [employer] EDMS Ida Hooker, RN RN 1 Arvin Sal ds4 Dinah Medina Maurice, MD MD 7 Allen Marie RN RN sv1 Corrections: (The following items were deleted from the chart) 08/17 21:19 21:14 Phosphorus drawn and sent. sv1 EDMS
[2021-08-18 02:25] VITALS: BP 117/86; TEMP 98.1; O2SAT 100
== END 2021-08-18 01:40 | disposition home or self-care (01) ==
LOC: ER 20:25
DX: R07.9 Chest pain, unspecified (principal); F41.9 Anxiety disorder, unspecified
CPT/HCPCS: 96361; 93005; 85025; 80048; 36415; 83735; 81025; 84100; 85610; 85379; 80076; 81003; 84484 ×2; 83880; 70450; 71045; 96374; 99285; J2550; J7030

== ENCOUNTER 2021-11-08 20:43 | Emergency (ER) | payer BC ==
--- OUTSIDE RECORDS SUMMARY | 2021-11-08 20:50 | XMS REPORT | Continuity of Care Document ---
:1980 Author Organization [facility] t Address [address] [place] [address] Care Team Providers Name Role Phone ROMAINE [...] rs active active ity of problems problems [facility] Allergies, Adverse Reactions, Alerts Allergy Allergy Status Severity Reaction(s) Onset Inactive Treating Comm ents Source Name Type Date Date Clinician NO KNOWN Drug Active Univers ALLERGIE Class [facility] Social History Social Habit Start Date Stop Date Quantity Comments Source Exposure to Not sure [facility] SARS-CoV-2 (event) [place] Sex Assigned At [birth year] [facility] 00:00:00 00:00:00 [facility] Smoking Status Start Date Stop Date Source Never smoker [facility] Medications Ordered Filled Start Stop Current Ordering Indication Dosage Frequency Signature Comments Components Source Medication Medication Date Date Medication? Clinician (SIG) Name Name No known No [facility] medications [facility] Procedures This patient has no known procedures. Encounters Start End Encounter Admission Attending Care Care Encounter Source Date/Time Date/Time Type Type Clinicians Facility Department ID 2021-02-08 2021-02-08 Outpatient Jason MISTRY [facility] [id number] [facility] 11:30[facility]00 [facility] 2021-01-20 2021-01-20 Outpatient Jason MISTRY [facility] [id number] Univers 17:50:00 17:50:00 JORGE ALBERTO nielson [facility] 2020-12-18 2020-12-18 Laboratory Lab, Adc Fam Pob I [facility] 1.2. [id number] [facility] 17:33:43 17:53:43 Only Hien Armstrong [facility] [id number] [facility] [id number] Nav as Professio [phone] Ak dical [address] 2020-12-18 2020-12-18 Outpatient [facility] [id number] Univers 17:40:00 17:40:00 [id number] [facility] 2020-12-18 2020-12-18 Outpatient R PATTI [facility] [id number] Univers 17:40:00 17:40:00 HIEN nielson o f [facility] Results This patient has no known results.
[2021-11-08 22:52] LABS: Hematocrit 41.7 % (36.0-45.0); Lymphocytes % 39.7 % (15.3-44.8); MPV 7.2 fL (7.6-11.3); RBC Red Blood Cell Count 4.66 M/uL (3.86-4.86)
[2021-11-08 23:13] LABS: ALT/SGPT 24 U/L (12-78); AST/SGOT 11 U/L (15-37); Albumin 3.5 g/dL (3.4-5.0); Alkaline Phosphatase 82 U/L (45-117); BUN Blood Urea Nitrogen 7 mg/dL (7-18); Bicarbonate 25 mmol/L (21-32); Bilirubin Total 0.2 mg/dL (0.2-1.0); Glucose Level 92 mg/dL (74-106); Magnesium 2.1 mg/dL (1.8-2.4); NT PRO-BNP 21 pg/mL (<125); Potassium 3.8 mmol/L (3.5-5.1); Protein, Total 7.3 g/dL (6.4-8.2); Sodium Level 139 mmol/L (136-145)
[2021-11-08 23:16] LABS: Bilirubin Direct < 0.1 mg/dL (0-0.2); Troponin High Sensitivity < 3.00 pg/mL (<58.9)
--- NOTE | 2021-11-09 01:47 | EDPHYS ---
Physician Documentation [facility] Name: Simin Doe Age: 41 yrs Sex: Female : 1980 Arrival Date: 11/08/2021 Time: 21:24 Bed 15 Private MD: ED Physician Getachew Dia HPI: 11/09 00:22 This 41 yrs old Female presents to ER via Ambulatory with complaints of Chest jr8 Pain, Back Pain, Dizziness. 00:22 The patient or guardian reports chest pain that is located primarily in the anterior jr8 chest wall. The pain radiates to both arms. Associated signs and symptoms: Pertinent positives: dizziness. The chest pain is described as a pressure. Duration: The patient or guardian reports a single episode, that is still ongoing. Modifying factors: The symptoms are alleviated by nothing. the symptoms are aggravated by nothing. Severity of pain: At its worst the pain was moderate in the emergency department the pain is unchanged. The patient has experienced similar episodes in the past, a few times. The patient has not recently seen a physician. Patient stated that she has had similar symptoms in past and was a result of her potassium to be low. Today chest pain was worse than normal. Historical: - Allergies: 11/08 21:31 No Known Allergies; ab2 - PMHx: 21:31 Anxiety; Sleep apnea; ab2 - PSHx: 21:31 Cholecystectomy; ab2 - Immunization history:: Adult Immunizations up to date. - Social history:: Smoking status: Patient denies any tobacco usage or history of. ROS: 11/09 00:22 Eyes: Negative for injury, pain, redness, and discharge, ENT: Negative for injury, jr8 pain, and discharge, Neck: Negative for injury, pain, and swelling, Respiratory: Negative for shortness of breath, cough, wheezing, and pleuritic chest pain, Abdomen/GI: Negative for abdominal pain, nausea, vomiting, diarrhea, and constipation, Back: Negative for injury and pain, MS/Extremity: Negative for injury and deformity, Skin: Negative for injury, rash, and discoloration. Cardiovascular: Positive for chest pain, Negative for edema, orthopnea, palpitations, paroxysmal nocturnal dyspnea. Neuro: Positive for dizziness. Exam: 00:22 Constitutional: This is a well developed, well nourished patient who is awake, alert, jr8 and in no acute distress. Eyes: Pupils equal round and reactive to light, extra-ocular motions intact. Lids and lashes normal. Conjunctiva and sclera are non-icteric and not injected. Cornea within normal limits. Periorbital areas with no swelling, redness, or edema. ENT: Nares patent. No nasal discharge, no septal abnormalities noted. Tympanic membranes are normal and external auditory canals are clear. Oropharynx with no redness, swelling, or masses, exudates, or evidence of obstruction, uvula midline. Mucous membranes moist. Neck: Trachea midline, no thyromegaly or masses palpated, and no cervical lymphadenopathy. Supple, full range of motion without nuchal rigidity, or vertebral point tenderness. No Meningismus. Cardiovascular: Regular rate and rhythm with a normal S1 and S2. No gallops, murmurs, or rubs. Normal PMI, no JVD. No pulse deficits. Respiratory: Lungs have equal breath sounds bilaterally, clear to auscultation and percussion. No rales, rhonchi or wheezes noted. No increased work of breathing, no retractions or nasal flaring. Abdomen/GI: Soft, non-tender, with normal bowel sounds. No distension or tympany. No guarding or rebound. No evidence of tenderness throughout. Back: No spinal tenderness. No costovertebral tenderness. Full range of motion. Skin: Warm, dry with normal turgor. Normal color with no rashes, no lesions, and no evidence of cellulitis. MS/ Extremity: Pulses equal, no cyanosis. Neurovascular intact. Full, normal range of motion. Neuro: Awake and alert, GCS 15, oriented to person, place, time, and situation. Cranial nerves II-XII grossly intact. Motor strength 5/5 in all extremities. Sensory grossly intact. Cerebellar exam normal. Normal gait. Vital Signs: 11/08 21:27 BP 142 / 114; Pulse 89; Resp 18; Temp 98.7(TE); Pulse Ox 99% on R/A; Weight 86.18 kg; ab2 Height 5 ft. 2 in. (157.48 cm); Pain 7/10; 23:54 BP 127 / 92; Pulse 90; Resp 17; Pulse Ox 100% on R/A; lg3 11/09 00:30 BP 132 / 86; Pulse 88; Resp 18 S; Pulse Ox 99% on R/A; lg3 01:33 BP 136 / 82; Pulse 92; Resp 18 S; Pulse Ox 98% on R/A; lg3 11/08 21:27 Body Mass Index 34.75 (86.18 kg, 157.48 cm) ab2 MDM: 11/08 21:37 Patient medically screened. [facility] 11/09 01:45 Data reviewed: vital signs, nurses notes, lab test result(s), EKG, radiologic studies, [facility] CT scan, plain films. Data interpreted: Pulse oximetry: on room air is 98 %. Interpretation: normal. Counseling: I had a detailed discussion with the patient and/or guardian regarding: the historical points, exam findings, and any diagnostic results supporting the discharge/admit diagnosis, lab results, radiology results, the need for outpatient follow up, a family practitioner, to return to the emergency department if symptoms worsen or persist or if there are any questions or concerns that arise at home. Response to treatment: the patient's symptoms have resolved after treatment. Special discussion: Based on the patient's history, exam, and Dx evaluation, there is no indication for emergent intervention or inpatient Tx. It is understood by the patient/guardian that if the Sx's persist or worsen they need to return immediately for re-evaluation. 11/08 21:37 Order name: Basic Metabolic Panel; Complete Time: 23:29 [facility] 11/08 21:37 Order name: CBC with Diff; Complete Time: 23:29 [facility] 11/08 21:37 Order name: LFT's; Complete Time: 23:29 [facility] 11/08 21:37 Order name: Magnesium; Complete Time: 23:29 [facility] 11/08 21:37 Order name: NT PRO-BNP; Complete Time: 23:29 [facility] 11/08 21:37 Order name: Troponin HS; Complete Time: 23:29 [facility] 11/08 21:37 Order name: XRAY Chest (1 view) 11/08 21:37 Order name: EKG; Complete Time: 22:11 11/08 21:37 Order name: Cardiac monitoring; Complete Time: 22:41 [facility] 11/08 21:37 Order name: EKG - Nurse/Tech; Complete Time: 22:23 11/08 21:37 Order name: IV Saline Lock; Complete Time: 22:41 8 11/08 21:37 Order name: Labs collected and sent; Complete Time: :41 jr8 11/08 21:37 Order name: O2 Per Protocol; Complete Time: :41 jr8 11/09 00:03 Order name: CT Chest For PE Angio jr8 11/08 21:37 Order name: O2 Sat Monitoring; Complete Time: 22:41 jr8 Administered Medications: No medications were administered Disposition: 05:59 Co-signature as Attending Physician, Getachew Dia MD. [facility] Disposition Summary: 11/09/21 01:46 Discharge Ordered Location: Home jr8 Problem: new jr8 Symptoms: have improved jr8 Condition: Stable jr8 Diagnosis - Chest pain, unspecified jr8 Followup: tw5 - With: Westley Olivia MD - When: 2 - 3 days - Reason: Recheck today's complaints, Continuance of care, Re-evaluation by your physician Discharge Instructions: - Discharge Summary Sheet jr8 - Nonspecific Chest Pain, Adult jr8 Forms: - Medication Reconciliation Form jr8 - Thank You Letter jr8 - Antibiotic Education jr8 - Prescription Opioid Use jr8 - Work release form 5 Signatures: Dispatcher [employer] Maksim Theodore PA PA 8 Getachew Dia MD MD [facility] Ronak Jean [facility]
--- NOTE | 2021-11-09 01:47 | ER ---
Nurse's Notes [facility] Name: Simin Doe Age: 41 yrs Sex: Female : 1980 Arrival Date: 11/08/2021 Time: 21:24 Bed 15 Private MD: Diagnosis: Chest pain, unspecified Presentation: 11/08 21:27 Chief complaint: Patient states: "My back hurts, my arms are numb and I have a chest ab2 pain that comes and goes. I keep cramping, this happened before and it was because my potassium was low.". Coronavirus screen: Vaccine status: Patient reports receiving the 2nd dose of the covid vaccine. Client denies travel out of the [place] in the last 14 days. At this time, the client does not indicate any symptoms associated with coronavirus-19. Ebola Screen: Patient negative for fever greater than or equal to 101.5 degrees Fahrenheit, and additional compatible Ebola Virus Disease symptoms Patient denies exposure to infectious person. Patient denies travel to an Ebola-affected area in the 21 days before illness onset. No symptoms or risks identified at this time. Initial Sepsis Screen: Does the patient meet any 2 criteria? No. Patient's initial sepsis screen is negative. Does the patient have a suspected source of infection? No. Patient's initial sepsis screen is negative. Risk Assessment: Do you want to hurt yourself or someone else? Patient reports no desire to harm self or others. Onset of symptoms is unknown. 21:27 Method Of Arrival: Ambulatory ab2 21:27 Acuity: YVONNE 3 ab2 Triage Assessment: 21:31 General: Appears in no apparent distress. uncomfortable, Behavior is calm, cooperative, ab2 appropriate for age. Pain: Complains of pain in back. Cardiovascular: Reports chest pain, Denies shortness of breath, Patient's skin is warm and dry. Respiratory: Airway is patent Respiratory effort is even, unlabored, Respiratory pattern is regular, symmetrical. Historical: - Allergies: 21:31 No Known Allergies; ab2 - PMHx: 21:31 Anxiety; Sleep apnea; ab2 - PSHx: 21:31 Cholecystectomy; ab2 - Immunization history:: Adult Immunizations up to date. - Social history:: Smoking status: Patient denies any tobacco usage or history of. Screenin:06 Abuse screen: Denies threats or abuse. Denies injuries from another. Nutritional lg3 screening: No deficits noted. Tuberculosis screening: No symptoms or risk factors identified. Fall Risk None identified. Assessment: 22:42 General: Appears in no apparent distress. comfortable, Behavior is calm, cooperative. lg3 Pain: Complains of pain in chest and right arm Pain radiates to back Pain began 1900. Neuro: No deficits noted. Level of Consciousness is awake, alert, obeys commands, Oriented to person, place, time, situation. Cardiovascular: No deficits noted. Capillary refill < 3 seconds JVD is absent Patient's skin is warm and dry. Respiratory: No deficits noted. Airway is patent Trachea midline Respiratory effort is even, unlabored, Respiratory pattern is regular, symmetrical. GI: No deficits noted. No signs and/or symptoms were reported involving the gastrointestinal system. Abdomen is round non-distended. : No deficits noted. No signs and/or symptoms were reported regarding the genitourinary system. EENT: No deficits noted. No signs and/or symptoms were reported regarding the EENT system. Derm: No deficits noted. Skin is intact, is healthy with good turgor, Skin is dry. Musculoskeletal: No deficits noted. Circulation, motion, and sensation intact. Capillary refill < 3 seconds, Range of motion: intact in all extremities, Swelling present in right arm. 11/09 00:32 Reassessment: Patient appears in no apparent distress at this time. No changes from lg3 previously documented assessment. Patient and/or family updated on plan of care and expected duration. Pain level reassessed. Patient is alert, oriented x 3, equal unlabored respirations, skin warm/dry/pink. 01:34 Reassessment: Patient appears in no apparent distress at this time. Patient is alert, lg3 oriented x 3, equal unlabored respirations, skin warm/dry/pink. Vital Signs: 11/08 21:27 BP 142 / 114; Pulse 89; Resp 18; Temp 98.7(TE); Pulse Ox 99% on R/A; Weight 86.18 kg; ab2 Height 5 ft. 2 in. (157.48 cm); Pain 7/10; 23:54 BP 127 / 92; Pulse 90; Resp 17; Pulse Ox 100% on R/A; lg3 11/09 00:30 BP 132 / 86; Pulse 88; Resp 18 S; Pulse Ox 99% on R/A; lg3 01:33 BP 136 / 82; Pulse 92; Resp 18 S; Pulse Ox 98% on R/A; lg3 11/08 21:27 Body Mass Index 34.75 (86.18 kg, 157.48 cm) ab2 ED Course: 11/08 21:24 Patient arrived in ED. jj6 21:31 Triage completed. ab2 21:32 Arm band placed on right wrist. ab2 21:37 Maksim Nunez PA is PHCP. jr8 21:37 Getachew Dia MD is Attending Physician. jr8 22:20 Carley Bah, RN is Primary Nurse. lg3 22:41 Basic Metabolic Panel Sent. lg3 22:41 CBC with Diff Sent. lg3 22:41 LFT's Sent. lg3 22:41 Magnesium Sent. lg3 22:41 NT PRO-BNP Sent. lg3 22:41 Troponin HS Sent. lg3 22:44 XRAY Chest (1 view) In Process Unspecified. EDMS 23:06 Patient has correct armband on for positive identification. Placed in gown. Bed in low lg3 position. Call light in reach. Side rails up X 1. vending machine collector on. Pulse ox on. NIBP on. 11/09 01:07 CT Chest For PE Angio In Process Unspecified. EDMS 01:48 Westley Olivia MD is Referral Physician. tw5 02:03 No provider procedures requiring assistance completed. IV discontinued, intact, lg3 bleeding controlled, No redness/swelling at site. Pressure dressing applied. Patient maintains SpO2 saturation greater than 95% on room air. Administered Medications: No medications were administered Outcome: 01:46 Discharge ordered by . jrScooter 02:03 Discharged to home ambulatory. lg3 02:03 Condition: stable 02:03 Discharge instructions given to patient, Instructed on discharge instructions, follow up and referral plans. 02:04 Patient left the ED. lg3 Signatures: Dispatcher [employer] EDMS Maksim Nunez PA PA jrCarley Lo, RN RN lg3 Madina Squires tw5 Thu Badillo jj6 Ronak Jean ab2
[2021-11-09 02:53] VITALS: TEMP 98.7
[2021-11-09 02:57] VITALS: BP 136/82; O2SAT 98
--- NOTE | 2021-11-09 11:50 | RAD REPORT ---
EXAM DESCRIPTION: RAD - Chest Single View - 11/08/2021 10:45 pm CLINICAL HISTORY: 41 years Female, CHEST PAIN TECHNIQUE: 1 view (Single frontal view of the chest) COMPARISON: 08/17/2021 FINDINGS: LINES AND TUBES: None. CARDIOVASCULAR STRUCTURES: ormal heart size. No pulmonary venous congestion. LUNGS: No confluent areas of acute consolidation. PLEURA: No layering pleural effusions. No pneumothorax. BONES: No acute osseous abnormality of the thorax. IMPRESSION: 1. No acute cardiopulmonary disease. Electronically signed by: Collins Haq MD 11/09/2021 12:01 AM CDT Due to temporary technical issues with the PACS/Fluency reporting system, reports are being signed by the in house radiologists without review as a courtesy to insure prompt reporting. The interpreting radiologist is fully responsible for the content of the report.
--- NOTE | 2021-11-09 14:36 | RAD REPORT ---
EXAM DESCRIPTION: CT - Chest For Pe Angio - 11/09/2021 6:26 am CLINICAL HISTORY: 41 years, Female, CHEST PAIN COMPARISON: None TECHNIQUE: Multiple transaxial tomograms of the chest were obtained from the lung apices through the lung bases utilizing 2 mm slice thickness at 2 mm interval reconstruction after the administration o f large bolus of IV contrast for complete opacification of the pulmonary arteries. Subsequent 3-D maximum intensity projection images were generated in the coronal and sagittal plane f or review. This exam was performed according to our departmental dose-optimization protocol, which includes auto mated exposure control, adjustment of the mA and/or kV according to patient size and/or use of iterat mounika reconstruction technique. FINDINGS: The lungs parenchyma demonstrate minimal dependent atelectatic changes. No masses, nodules and/or consolidations are identified. The trachea mainstem bronchus demonstrate to be normal. There is no significant pericardial or pleura l effusions. The thoracic aorta demonstrate to be unremarkable. There is no evidence for aneurysm/or dissection. T he heart is normal in size. No evidence for right ventricular strain. There are no coronary artery ca lcifications. There is no significant mediastinal and/or hilar lymphadenopathy. The axillary regions demonstrate to be clear. Pulmonary arteries demonstrate to be normal, no intraluminal defect are seen that would suggest pulmo nary embolus. The bone windows demonstrate no significant skeletal lesions. The visualized portions of the upper abdomen demonstrate to be unremarkable. IMPRESSION: No evidence for pulmonary embolus. Minimal dependent atelectatic changes. Otherwise unremarkable CT scan of the chest with contrast. Electronically signed by: Jatin Waggoner MD 11/09/2021 1:29 AM CDT Due to temporary technical issues with the PACS/Fluency reporting system, reports are being signed by the in house radiologists without review as a courtesy to insure prompt reporting. The interpreting radiologist is fully responsible for the content of the report.
--- NOTE | 2021-11-10 07:26 | EKG ---
Test Date: 2021-11-08 Test Time: 20:36:40 Provider Relations Coordinator: MEASUREMENT RESULTS: Intervals: Rate: 88 RI: 142 QRSD: 74 QT: 350 QTc: 423 [place]: P: 24 RI: 142 QRS: 23 T: -2 INTERPRETIVE STATEMENTS: Normal sinus rhythm Cannot rule out Anterior infarct, age undetermined Abnormal ECG Compared to ECG 08/17/2021 20:44:56 Sinus arrhythmia no longer present Myocardial infarct finding still present Electronically Signed On 11-10-21 07:22:24 CDT by Westley Olivia
== END 2021-11-09 02:04 | disposition home or self-care (01) ==
LOC: ER 20:43
DX: R07.9 Chest pain, unspecified (principal); R42 Dizziness and giddiness
CPT/HCPCS: 93005; 85025; 80048; 36415; 83735; 80076; 84484; 83880; 71275; 71045; 99285; Q9967

== ENCOUNTER 2022-02-06 19:27 | Emergency (ER) | payer BC ==
--- OUTSIDE RECORDS SUMMARY | 2022-02-06 19:30 | XMS REPORT | Continuity of Care Document ---
:1980 Author Organization [facility] t Address [id number] Care Team Providers Name Role Phone PCP, DOES NOT HAVE A Primary Care Physician Unavailable ROMAINE MISTRY Attending Clinician Unavailable Lab, Fam Pob I Attending Clinician Unavailable Kanu Christensen Attending Clinician Kanu ARMSTRONG Attending Clinician Unavailable Payers Payer Name Policy Type Policy Number Effective Date Expiration Date S [place] [employer] [place] [id number] 2020 00:00:00 WOMEN Problems Condition Condition Condition Status Onset Resolution Last Treating Co mments Source Name Details Category Date Date Treatment Clinician Date No known No known Disease Unive rs active active ity of problems problems [facility] Allergies, Adverse Reactions, Alerts Allergy Allergy Status Severity Reaction(s) Onset Inactive Treating Comm ents Source Name Type Date Date Clinician NO KNOWN Drug Active [facility] ALLERGIE Class ity of [facility] Social History Social Habit Start Date Stop Date Quantity Comments Source Exposure to Not sure [facility] SARS-CoV-2 (event) [facility] Sex Assigned At [birth year] [facility] 00:00:00 00:00:00 [facility] Smoking Status Start Date Stop Date Source Never smoker [facility] Medications Ordered Filled Start Stop Current Ordering Indication Dosage Frequency Signature Comments Components Source Medication Medication Date Date Medication? Clinician (SIG) Name Name No known No Univers medications [facility] Procedures This patient has no known procedures. Encounters Start End Encounter Admission Attending Care Care Encounter Source Date/Time Date/Time Type Type Clinicians Facility Department ID 2021-02-08 2021-02-08 Outpatient Jason MISTRY [facility] [id number] [facility] 11:30:00 11:30:00 JORGE ALBERTO [facility] 2021-01-20 2021-01-20 Outpatient R FEDE [facility] [id number] [facility] 17:50:00 17:42:[facility] 2020-12-18 2020-12-18 Laboratory Lab, Adc Fam Pob I [facility] [id number] [facility] 17:33:43 17:53:43 Only Hien Armstrong [facility] [id number] [facility] [id number] Nav as Professio [phone] Nd dical [address] 2020-12-18 2020-12-18 Outpatient [facility] [id number] Univers 17:40:00 17:40:00 [id number] [facility] 2020-12-18 2020-12-18 Outpatient R PATTI [facility] [id number] Univers 17:40:00 17:40:00 HIEN nielson o f [facility] Results This patient has no known results.
[2022-02-06] MEDS ORDERED: ONDANSETRON 4 MG/2 ML VIAL ONE (20:34)
[2022-02-06] MEDS ORDERED: NA CHLORIDE 0.9% 1,000 ML ONE (20:34)
[2022-02-06] MEDS ORDERED: MORPHINE 4 MG/ML SYR ONE (20:34)
[2022-02-06 21:16] LABS: Absolute Lymphocytes (CBC) 2.7 K/uL (0.7-4.9); Hematocrit 41.8 % (36.0-45.0); Lymphocytes % 38.4 % (15.3-44.8); MPV 7.2 fL (7.6-11.3); RBC Red Blood Cell Count 4.73 M/uL (3.86-4.86)
[2022-02-06 21:27] LABS: Urine Blood Negative (Negative); Urine Glucose Negative (Negative); Urine Protein Negative (Negative); Urine Specific Gravity 1.015 (1.005-1.030)
[2022-02-06 21:29] LABS: Albumin 3.4 g/dL (3.4-5.0); Bilirubin Total 0.2 mg/dL (0.2-1.0); Potassium 3.7 mmol/L (3.5-5.1); Protein, Total 7.1 g/dL (6.4-8.2); Troponin High Sensitivity 3.2 pg/mL (<58.9)
--- NOTE | 2022-02-06 21:44 | RAD REPORT ---
EXAM DESCRIPTION: [place] Single View02/06/2022 8:59 pm CLINICAL HISTORY: Chest pain COMPARISON: October 2021 FINDINGS: The lungs appear clear of acute infiltrate. The heart is normal size IMPRESSION: No acute abnormalities displayed
[2022-02-06 23:24] LABS: Urine Specific Gravity/Preg 1.015 (1.005-1.030)
[2022-02-07 00:44] LABS: Urine Bacteria <20 /HPF (<20); Urine RBC NONE SEEN /HPF (NONE SEEN)
--- NOTE | 2022-02-07 02:28 | ER ---
Nurse's Notes [facility] Name: Simin Doe Age: 41 yrs Sex: Female : 1980 Arrival Date: 02/06/2022 Time: 19:30 Bed 15 Private MD: Diagnosis: Lower abdominal pain, unspecified;Other ovarian cysts Presentation: 02/06 19:41 Chief complaint: Patient states: I have chest pain on and off for the past 2 hours. jb4 Abdominal pain about a month on and off. I feel short of breath today. Coronavirus screen: At this time, the client does not indicate any symptoms associated with coronavirus-19. Ebola Screen: No symptoms or risks identified at this time. Initial Sepsis Screen: Does the patient meet any 2 criteria? HR > 90 bpm. Yes Does the patient have a suspected source of infection? No. Patient's initial sepsis screen is negative. Risk Assessment: Do you want to hurt yourself or someone else? Patient reports no desire to harm self or others. Onset of symptoms was February 06, 2022. Transition of care: patient was not received from another setting of care. 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 - Social history:: Smoking status: unknown. Screenin:29 Abuse screen: Denies threats or abuse. Nutritional screening: No deficits noted. ll3 Tuberculosis screening: No symptoms or risk factors identified. Fall Risk No fall in past 12 months (0 pts). No secondary diagnosis (0 pts). IV access (20 points). Ambulatory Aid- None/Bed Rest/Nurse Assist (0 pts). Gait- Normal/Bed Rest/Wheelchair (0 pts) Mental Status- Oriented to own ability (0 pts). Total Levy Fall Scale indicates No Risk (0-24 pts). Assessment: 20:00 General: Appears uncomfortable, Behavior is calm, cooperative. Pain: Complains of pain ll3 in right lower quadrant Pain does not radiate. Pain currently is 8 out of 10 on a pain scale. Quality of pain is described as sharp, Pain began last month Is episodic. Neuro: Level of Consciousness is awake, alert, obeys commands, Oriented to person, place, time, situation. Cardiovascular: Patient's skin is warm and dry. Chest pain quality is heaviness, is located in anterior chest wall episodes are continuous. Respiratory: Respiratory effort is even, unlabored, Respiratory pattern is regular, symmetrical. GI: Abdomen is round non-distended, Reports lower abdominal pain. Derm: Skin is pink, warm \T\ dry. 21:00 Reassessment: No changes from previously documented assessment. Patient and/or family ll3 updated on plan of care and expected duration. Pain level reassessed. Patient is alert, oriented x 3, equal unlabored respirations, skin warm/dry/pink. 22:30 Reassessment: No changes from previously documented assessment. Patient and/or family ll3 updated on plan of care and expected duration. Pain level reassessed. Patient is alert, oriented x 3, equal unlabored respirations, skin warm/dry/pink. 02/07 00:28 Reassessment: No changes from previously documented assessment. Patient and/or family ll3 updated on plan of care and expected duration. Pain level reassessed. Patient is alert, oriented x 3, equal unlabored respirations, skin warm/dry/pink. 02:00 Reassessment: No changes from previously documented assessment. Patient and/or family ll3 updated on plan of care and expected duration. Pain level reassessed. Patient is alert, oriented x 3, equal unlabored respirations, skin warm/dry/pink. Vital Signs: 02/06 19:41 BP 135 / 83; Pulse 92; Resp 18; Temp 98.5; Pulse Ox 95% ; Weight 85.73 kg (R); Height 4 jb4 ft. 9 in. (144.78 cm) (R); Pain 9/10; 21:00 BP 138 / 107; Pulse 86; Resp 18; Pulse Ox 96% on R/A; ll3 21:40 BP 132 / 93; Pulse 74; Resp 18; Pulse Ox 97% on R/A; ll3 23:00 BP 132 / 88; Pulse 68; Resp 16; Pulse Ox 96% on R/A; ll3 / 00:27 BP 128 / 83; Pulse 62; Resp 17; Pulse Ox 98% on R/A; ll3 02/06 19:41 Body Mass Index 40.90 (85.73 kg, 144.78 cm) jb4 ED Course: 02/06 19:30 Patient arrived in ED. bp1 19:41 Arm band placed on right wrist. jb4 19:42 Triage completed. jb4 19:42 EKG completed in triage. Results shown to MD. jb4 19:44 Getachew Dia MD is Attending Physician. mh7 19:54 Tawana Murdock RN is Primary Nurse. ll3 21:00 Chest Single View XRAY In Process Unspecified. EDMS 21:15 Initial lab(s) drawn, by me, sent to lab. Inserted saline lock: 22 gauge in right ll3 antecubital area, using aseptic technique. Blood collected. Patient maintains SpO2 saturation greater than 95% on room air. 22:29 Patient has correct armband on for positive identification. Placed in gown. Bed in low ll3 position. Call light in reach. Side rails up X 1. Pulse ox on. NIBP on. 22:41 CT Abd/Pelvis - IV Contrast Only In Process Unspecified. EDMS 06/13 01:20 US Transvaginal Study (Probe) In Process Unspecified. EDMS 02:26 Mercedes Riddle MD is Referral Physician. 7 02:59 No provider procedures requiring assistance completed. IV discontinued, intact, ll3 bleeding controlled, No redness/swelling at site. Pressure dressing applied. Administered Medications: 02/06 21:08 Drug: Zofran (Ondansetron) 4 mg Route: IVP; Site: right antecubital; ll3 22:45 Follow up: Response: No adverse reaction ll3 21:10 Drug: NS 0.9% 1000 ml Route: IV; Rate: 1 bolus; Site: right antecubital; ll3 22:45 Follow up: Response: No adverse reaction; IV Status: Completed infusion; IV Intake: ll3 1000ml 21:10 Drug: morphine 4 mg Route: IVP; Infused Over: 4 mins; Site: right antecubital; ll3 22:44 Follow up: Response: No adverse reaction; Marked relief of symptoms ll3 Medication: 02/07 03:00 VIS not applicable for this client. ll3 Intake: 02/06 22:45 IV: 1000ml; Total: 1000ml. ll3 Outcome: 02/07 02:27 Discharge ordered by . trever 02:59 Discharged to home ambulatory, with family. ll3 02:59 Condition: stable 02:59 Discharge instructions given to patient, family, Instructed on discharge instructions, follow up and referral plans. medication usage, Demonstrated understanding of instructions, follow-up care, medications, Prescriptions given X 1. 03:01 Patient left the ED. ll3 Signatures: Dispatcher [employer] EDMS Tigre Ramirez, RN RN jb4 Dinah Medina Maurice, MD MD 7 Tawana Murdock RN RN 3
--- NOTE | 2022-02-07 02:28 | EDPHYS ---
Physician Documentation [facility] Name: Simin Doe Age: 41 yrs Sex: Female : 1980 Arrival Date: 02/06/2022 Time: 19:30 Bed 15 Private MD: ED Physician Getachew Dia HPI: 02/06 19:59 This 41 yrs old Female presents to ER via Ambulatory with complaints of Chest mh7 Pain > 30 y/o, Abdominal Pain. 19:59 The patient presents with abdominal pain right lower quadrant. Onset: The mh7 symptoms/episode began/occurred today, 4 hour(s) ago. The symptoms do not radiate. Associated signs and symptoms: Pertinent positives: chest pain, shortness of breath, Pertinent negatives: nausea, vomiting, and diarrhea, anorexia, blood in stools, constipation, diarrhea, dysuria, fever, headache, hematuria, palpitations, vaginal discharge, vomiting, vomiting blood. The symptoms are described as intermittent, vague, waxing/waning. Modifying factors: The symptoms are alleviated by nothing, the symptoms are aggravated by movement, touching the area. Severity of pain: At its worst the pain was moderate today, in the emergency department the pain is unchanged. States that she started having right lower abdominal pain intermittently for a month. She states that the pain came again today and is more persistent. She states that she then started to feel a slight pain in her chest due to the abdominal pain. She did not try to take any pain medication today and ate chicken tenders en route to hospital.. 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 - Social history:: Smoking status: unknown. ROS: 19:59 Constitutional: Negative for fever, chills, and weight loss, Eyes: Negative for injury, mh7 pain, redness, and discharge, ENT: Negative for injury, pain, and discharge, Neck: Negative for injury, pain, and swelling, Respiratory: Negative for shortness of breath, cough, wheezing, and pleuritic chest pain, Back: Negative for injury and pain, : Negative for injury, bleeding, discharge, and swelling, MS/Extremity: Negative for injury and deformity, Skin: Negative for injury, rash, and discoloration, Neuro: Negative for headache, weakness, numbness, tingling, and seizure, Psych: Negative for depression, anxiety, suicide ideation, homicidal ideation, and hallucinations, Allergy/Immunology: Negative for hives, rash, and allergies, Endocrine: Negative for neck swelling, polydipsia, polyuria, polyphagia, and marked weight changes, Hematologic/Lymphatic: Negative for swollen nodes, abnormal bleeding, and unusual bruising. Exam: 19:59 Constitutional: This is a well developed, well nourished patient who is awake, alert, mh7 and in no acute distress. Head/Face: Normocephalic, atraumatic. Eyes: Pupils equal round and reactive to light, extra-ocular motions intact. Lids and lashes normal. Conjunctiva and sclera are non-icteric and not injected. Cornea within normal limits. Periorbital areas with no swelling, redness, or edema. Neck: Trachea midline, no thyromegaly or masses palpated, and no cervical lymphadenopathy. Supple, full range of motion without nuchal rigidity, or vertebral point tenderness. No Meningismus. Chest/axilla: Normal chest wall appearance and motion. Nontender with no deformity. No lesions are appreciated. Cardiovascular: Regular rate and rhythm with a normal S1 and S2. No gallops, murmurs, or rubs. Normal PMI, no JVD. No pulse deficits. Respiratory: Lungs have equal breath sounds bilaterally, clear to auscultation and percussion. No rales, rhonchi or wheezes noted. No increased work of breathing, no retractions or nasal flaring. 19:59 Back: No spinal tenderness. No costovertebral tenderness. Full range of motion. Skin: Warm, dry with normal turgor. Normal color with no rashes, no lesions, and no evidence of cellulitis. MS/ Extremity: Pulses equal, no cyanosis. Neurovascular intact. Full, normal range of motion. Neuro: Awake and alert, GCS 15, oriented to person, place, time, and situation. Cranial nerves II-XII grossly intact. Motor strength 5/5 in all extremities. Sensory grossly intact. Cerebellar exam normal. Normal gait. Psych: Awake, alert, with orientation to person, place and time. Behavior, mood, and affect are within normal limits. 19:59 Abdomen/GI: Inspection: obese Bowel sounds: normal, in all quadrants, Palpation: moderate abdominal tenderness, in the right lower quadrant, mass, is not appreciated, rebound tenderness, is not appreciated, voluntary guarding, is not appreciated, involuntary guarding, is not appreciated, no appreciated organomegaly, Indicators: McBurney's point is not tender, Villegas's sign is negative, Rovsing's sign is negative, Obturator sign is negative, Psoas sign is negative, Liver: no appreciated palpable abnormalities, Hernia: not appreciated. Vital Signs: 19:41 BP 135 / 83; Pulse 92; Resp 18; Temp 98.5; Pulse Ox 95% ; Weight 85.73 kg (R); Height 4 jb4 ft. 9 in. (144.78 cm) (R); Pain 9/10; 21:00 BP 138 / 107; Pulse 86; Resp 18; Pulse Ox 96% on R/A; ll3 21:40 BP 132 / 93; Pulse 74; Resp 18; Pulse Ox 97% on R/A; ll3 23:00 BP 132 / 88; Pulse 68; Resp 16; Pulse Ox 96% on R/A; ll3 02/07 00:27 BP 128 / 83; Pulse 62; Resp 17; Pulse Ox 98% on R/A; ll3 02/06 19:41 Body Mass Index 40.90 (85.73 kg, 144.78 cm) jb4 MDM: 02:24 Differential diagnosis: bowel obstruction, diverticulitis, Ectopic , mh7 non-specific abd pain, Ovarian Torsion, Pyelonephritis, Ureterolithiasis, urinary tract infection. Data reviewed: vital signs, nurses notes, lab test result(s), CBC, electrolytes, urinalysis, radiologic studies, CT scan, ultrasound. Data interpreted: Pulse oximetry: on room air is 98 %. Interpretation: normal. Counseling: I had a detailed discussion with the patient and/or guardian regarding: the historical points, exam findings, and any diagnostic results supporting the discharge/admit diagnosis, lab results, radiology results, the need for outpatient follow up, an OB/Gyne specialist, to return to the emergency department if symptoms worsen or persist or if there are any questions or concerns that arise at home. Response to treatment: the patient's symptoms have resolved after treatment, the patient's blood pressure is in an acceptable range, mental status has returned to baseline, the patient no longer shows bradycardia, the patient is not short of breath, the patient is not tachycardic, the patient's pain is gone, the patient's temperature has normalized, the patient is now symptom free, patient is well hydrated. 02:27 Patient medically screened. [facility] 02/06 19:58 Order name: CBC with Diff; Complete Time: 21:35 [facility] 02/06 19:58 Order name: CMP; Complete Time: 21:35 [facility] 02/06 19:58 Order name: Lipase; Complete Time: 21:35 [facility] 02/06 19:58 Order name: Troponin High Sensitivity; Complete Time: 21:35 [facility] 02/06 20:07 Order name: D-Dimer; Complete Time: 21:35 [facility] 02/06 21:27 Order name: Urine Dipstick-Ancillary; Complete Time: 21:35 [facility] 02/06 19:58 Order name: CT Abd/Pelvis - IV Contrast Only [facility] 02/06 19:58 Order name: Chest Single View XRAY; Complete Time: 22:15 [facility] 02/06 21:32 Order name: Urine --Ancillary (enter results); Complete Time: 23:41 02/06 22:22 Order name: Urine Microscopic Only; Complete Time: 01:01 [facility] 02/07 00:37 Order name: US Transvaginal Study (Probe) [facility] 02/06 19:58 Order name: IV Saline Lock; Complete Time: 21:14 [facility] 02/06 19:58 Order name: Labs collected and sent; Complete Time: 21:14 [facility] 02/06 19:58 Order name: Urine Dipstick-Ancillary (obtain specimen); Complete Time: 21:14 [facility] 02/06 19:58 Order name: Urine Test (obtain specimen); Complete Time: 21:14 [facility] Administered Medications: 02/06 21:08 Drug: Zofran (Ondansetron) 4 mg Route: IVP; Site: right antecubital; ll3 22:45 Follow up: Response: No adverse reaction 3 21:10 Drug: NS 0.9% 1000 ml Route: IV; Rate: 1 bolus; Site: right antecubital; ll3 22:45 Follow up: Response: No adverse reaction; IV Status: Completed infusion; IV Intake: ll3 1000ml 21:10 Drug: morphine 4 mg Route: IVP; Infused Over: 4 mins; Site: right antecubital; ll3 22:44 Follow up: Response: No adverse reaction; Marked relief of symptoms 3 Disposition Summary: 02/07/22 02:27 Discharge Ordered Location: Home [facility] Problem: new [facility] Symptoms: have improved [facility] Condition: Stable [facility] Diagnosis - Lower abdominal pain, unspecified [facility] - Other ovarian cysts [facility] Followup: [facility] - With: Private Physician - When: 1 - 2 days - Reason: Worsening of condition, Recheck today's complaints, Continuance of care, Re-evaluation by your physician Followup: [facility] - With: Mercedes Riddle MD - When: 1 - 2 days - Reason: Worsening of condition, Recheck today's complaints Discharge Instructions: - Discharge Summary Sheet [facility] - Abdominal Pain, Adult, [id number] [facility] - Ovarian Cyst, [id number] [facility] - Form - Excuse from Work, School, or Physical Activity [facility] Forms: - Medication Reconciliation Form [facility] - Thank You Letter [facility] - Antibiotic Education [facility] - Prescription Opioid Use [facility] - Work release form 3 Prescriptions: - ketorolac 10 mg Oral tablet - take 1 tablet by ORAL route every 6-8 hours As needed not to exceed 40 mg in [facility] 24hrs; 15 tablet; Refills: 0, Product Selection Permitted Signatures: Dispatcher [employer] Tigre Fontenot RN RN jb4 Getachew Dia MD MD 7 Tawana Murdock RN RN ll3
[2022-02-07 03:13] VITALS: TEMP 98.5
[2022-02-07 03:20] VITALS: BP 128/83; O2SAT 98
--- NOTE | 2022-02-07 13:34 | EKG ---
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
--- NOTE | 2022-02-07 13:59 | RAD REPORT ---
EXAM DESCRIPTION: CT - Abdomen Pelvis W Contrast - 02/06/2022 10:39 pm CLINICAL HISTORY: RLQ abdominal pain. COMPARISON: CT of the abdomen and pelvis from July 01, 2020. TECHNIQUE: CT of the abdomen and pelvis was performed following intravenous administration of iodina magaly contrast. Arterial phase images through the abdomen, and portal venous phase images through the a bdomen and pelvis were obtained. Oral contrast was not administered. Axial, coronal, and sagittal sof t tissue window reconstructions were created and sent to PACS. This exam was performed according to our departmental dose-optimization program, which includes autom ated exposure control, adjustment of the mA and/or kV according to patient size and/or use of iterati ve reconstruction technique. FINDINGS: Thoracic: No significant abnormality. Hepatobiliary: No concerning hepatic lesion identified. The portal veins are patent. The gallbladder is surgically absent. No biliary ductal dilatation. Pancreas: Unremarkable. Spleen: Unremarkable. Gastrointestinal: No evidence of bowel obstruction or perienteric inflammation. The appendix is shagufta l. Adrenals: No abnormality identified in either adrenal gland. Renal: No concerning parenchymal abnormality in either kidney. No hydronephrosis or urolithiasis. Bladder/Reproductive: Unremarkable appearance of the urinary bladder by CT technique. Well positioned intrauterine device. Unremarkable CT appearance of the left ovary. Heterogeneous high densities in t he right ovary. Vascular/Lymphatics: No lymphadenopathy identified by CT size criteria. Abdominal aorta is normal in caliber. Trace calcific atherosclerosis in the infrarenal abdominal aorta. Musculoskeletal: No concerning osseous lesion identified. Transitional lumbosacral vertebral body, wi th a pseudoarticulation on the left and an elongated transverse process on the right. Fluid / peritoneum: No significant free fluid. No free intraperitoneal air identified. IMPRESSION 1. Normal appendix. 2. Heterogeneous hyperdensities in the right ovary. Differential includes hemorrhagic cyst. Recomme nd correlation with pelvic ultrasound. Electronically signed by: Mikayla Pantoja MD 02/06/2022 10:56 PM CDT Due to temporary technical issues with the PACS/Fluency reporting system, reports are being signed by the in house radiologist without review as a courtesy to ensure prompt reporting. The interpreting r adiologist is fully responsible for the content of the report.
--- NOTE | 2022-02-07 15:56 | RAD REPORT ---
EXAM DESCRIPTION: US - Transvaginal Study Probe - 02/07/2022 2:07 am CLINICAL HISTORY: 41 years, Female, right ovarian cyst COMPARISON: None. TECHNIQUE: Utilizing a transvaginal array transducer, real-time ultrasound evaluation of the female pelvis was performed. Color Doppler imaging was used to assess vascular flow. FINDINGS: The uterus measures 7.6 x 4.3 x 4.6 cm. The endometrial stripe demonstrate to be normal and measure 5.1 mm, there is a echogenic structure and T-shaped corresponding to a intrauterine devic e in good position. The right ovary was not visualized. The left ovary measures 3.6 x 2 x 2.4 cm. There is normal vascula r flow and spectral waveforms with no evidence for torsion. There is a left ovarian cyst measuring 1. 8 x 1.4 x 1.8 cm No free fluid was identified in the posterior cul-de-sac, no adnexal masses seen. IMPRESSION: Intrauterine device in place. 1.8 cm left ovarian follicle, normal finding. No follow-up imaging is recommended. Right ovary was not visualized. Otherwise unremarkable pelvic ultrasound Electronically signed by: Jatin Waggoner MD 02/07/2022 1:37 AM CDT Due to temporary technical issues with the PACS/Fluency reporting system, reports are being signed by the in house radiologist without review as a courtesy to ensure prompt reporting. The interpreting r adiologist is fully responsible for the content of the report.
== END 2022-02-07 03:01 | disposition home or self-care (01) ==
LOC: ER 19:27
DX: N83.201 Unspecified ovarian cyst, right side (principal); F41.9 Anxiety disorder, unspecified; G47.30 Sleep apnea, unspecified
CPT/HCPCS: 93005; 85025; 36415; 81025; 85379; 84484; 83690; 80053; 74177; 71045; 76830; Q9967; J7030; J2405; 81003; 81015; 96361; 96374; 96375; 99284

== ENCOUNTER 2023-01-05 18:53 | Emergency (ER) | payer BC ==
--- OUTSIDE RECORDS SUMMARY | 2023-01-05 18:56 | XMS REPORT | Continuity of Care Document ---
:1980 Author Organization [facility] t Address [address] [facility] [address] [place] [address] Care Team Providers Name Role Phone PCP, PATIENT DOES NOT HAVE A Primary Care Physician Unavaila AVIS Sandoval Attending Clinician Unavailable Nurse, [facility] Attending Clinician Unavailable Arabella Hammond Attending Clinician Provider, [facility] Attending Clinician Unavailable SERGEI LOPEZ Attending Clinician Unavailable ARABELLA PAUL Attending Clinician Unavailable Doctor Unassigned, [place] Attending Clinician Unavailable Denis ROCHE, Justine Reagan Attending Clinician [phone] JORGE ALBERTO MISTRY Attending Clinician Unavailable Lab, Adc Fam Pob I Attending Clinician Unavailable Hien Christensen Attending Clinician HIEN ARELLANO Attending Clinician Unavailable Payers Payer Name Policy Type Policy Number Effective Date Expiration Date S sundar [id number] PPO AND [id number] 2021 OUT OF STATE 00:00:00 Problems Condition Condition Condition Status Onset Resolution Last Treating Co mments Source Name Details Category Date Date Treatment Clinician Date No known No known Disease Unive rs active active ity of problems problems [facility] Allergies, Adverse Reactions, Alerts Allergy Allergy Status Severity Reaction(s) Onset Inactive Treating Comm ents Source Name Type Date Date Clinician NO KNOWN Drug Active Univers ALLERGIE Class ity of S [facility] Social History Social Habit Start Date Stop Date Quantity Comments Source Gender identity [facility] Exposure to 2022-05-01 2022-05-11 Not sure [facility] SARS-CoV-2 (event) 00:00:00 17:07:00 [facility] History of Social 2022-03-01 2022-03-01 [facility] function 00:[facility]:00 00:00:00 Sex Assigned At [birth year] [facility] 00:00:00 00:00:00 Smoking Status Start Date Stop Date Source [facility] Never smoked [facility] Medications Ordered Filled Start Stop Current Ordering Indication Dosage Frequency Signature Comments Components Source Medication Medication Date Date Medication? Clinician (SIG) Name Name No known 2021-08 No No known Unive rs medications 2-14 medication it y of 13:04: s [address] omeprazole 40mg QD Take 1 Meth robert (PriLOSEC) 03-[address] 40 MG 00:00: 04:59 (40 mg [facility] capsule 00 :00 total) by l mouth daily for 30 days. No known No No known Unive rs medications 7- medication it y of 16:00: s [address] No known No No known Unive rs medications 7- medication it y of 16:00: s [address] No known No Univers medications [facility] Immunizations Ordered Filled Immunization Date Status Comments Sourc e Immunization Name Name SARS-COV-2 COVID-19 2021-02-08 Completed Unive rsity of PFIZER VACCINE 00:00:00 [facility] SARS-COV-2 COVID-19 2021-02-08 Completed Unive rsity of PFIZER VACCINE 00:00:00 [facility] SARS-COV-2 COVID-19 2021-02-08 Completed Unive rsity of PFIZER VACCINE 00:00:00 [facility] SARS-COV-2 COVID-19 2021-01-20 Completed Unive rsity of PFIZER VACCINE 00:00:00 [facility] SARS-COV-2 COVID-19 2021-01-20 Completed Unive rsity of PFIZER VACCINE 00:00:00 [facility] SARS-COV-2 COVID-19 2021-01-20 Completed Unive rsity of PFIZER VACCINE 00:00:00 [facility] Vital Signs Vital Name Observation Time Observation Value Comments Source Systolic blood 2022-05-11 22:51:00 120 mm[Hg] Univer sity of pressure [facility] Diastolic blood 2022-05-11 22:51:00 89 mm[Hg] Unive rsity [facility] Heart rate 2022-05-11 22:51:00 75 /min [facility] Body temperature 2022-05-11 22:51:00 37.17 Guillermina [facility] Respiratory rate 2022-05-11 22:51:00 18 /min [facility] Body height 2022-05-11 22:51:00 144.8 cm [facility] Body weight 2022-05-11 22:51:00 88.724 kg [facility] BMI 2022-05-11 22:51:00 42.33 kg/m2 [facility] Oxygen saturation in 2022-05-11 22:51:00 98 /min [facility] Arterial blood by [facility] Pulse oximetry Hoffman Systolic blood 2022-03-02 02:40:00 119 mm[Hg] [facility] pressure Diastolic blood 2022-03-02 02:40:00 86 mm[Hg] [facility] pressure Heart rate 2022-03-02 02:40:00 83 /min [facility] Body temperature 2022-03-02 02:40:00 36.67 Guillermina [facility] Respiratory rate 2022-03-02 02:40:00 17 /min [facility] Oxygen saturation in 2022-03-02 02:40:00 99 /min [facility] Arterial blood by Pulse oximetry Body height 2022-03-01 23:42:00 144.8 cm [facility] Body weight 2022-03-01 23:42:00 89.812 kg [facility] BMI 2022-03-01 23:42:00 42.85 kg/m2 [facility] Procedures Procedure Date / Time Performing Clinician Source Performed ASSIGNMENT OF BENEFITS 2022-05-11 22:16:55 Doctor Unassigned, No [facility] CT ABDOMEN PELVIS WO 2022-03-02 01:21:41 [facility] CONTRAST Go CBC WITH PLATELET AND 2022-03-02 00:08:00 [facility] DIFFERENTIAL Go BASIC METABOLIC PANEL 2022-03-02 00:08:00 [facility] Go LIPASE LEVEL 2022-03-02 00:08:00 [facility] HEPATIC FUNCTION PANEL 2022-03-02 00:08:00 [facility] Go URINALYSIS SCREEN AND 2022-03-02 00:08:00 [facility] MICROSCOPY, WITH REFLEX Go TO CULTURE HCG QUALITATIVE, URINE 2022-03-02 00:08:00 [facility] SCREEN Go ESTIMATED GFR 2022-03-02 00:08:00 [facility] Go URINE CULTURE 2022-03-01 23:53:00 [facility] Plan of Care Planned Activity Planned Date Details Comments Source Future Scheduled 2023-01-05 Hepatitis C [facility] ospital Test 18:56:28 screening (procedure) [code = 520058106] Future Scheduled 2023-01-05 Screening for [facility] Test 18:56:28 malignant neoplasm of cervix (procedure) [code = 316866695] Future Scheduled 2023-01-05 COVID-19 [facility]INE [facility] 18:56:28 - Booster for Pfizer series) [code = COVID-19 VACCINE (3 - Booster for Pfizer series)] Future Scheduled 2023-01-05 BREAST CANCER [facility] Test 18:56:28 SCREENING [code = BREAST CANCER SCREENING] Future Scheduled 2023-01-05 INFLUENZA VACCINE [facility] Test 18:56:28 [code = INFLUENZA VACCINE] Encounters Start End Encounter Admission Attending Care Care Encounter Source Date/Time Date/Time Type Type Clinicians Facility Department ID 2022-03-14 Outpatient [facility] [id number] [place] 13:25:10 [id number] Health 2022-03-04 Outpatient [facility] [id number] [place] 14:56:53 [id number] [facility] 2022-02-10 Outpatient HUANG [facility] [id number] [place] 13:38:15 AVIS [id number] [facility] 2022-05-11 2022-05-11 Nurse Nurse, [facility] [id number] Univers 17:30:00 17:50:00 [facility] [id number] ity of [place] [id number] Nav as HAYLIE?BLEA [phone] [address] OFFICE [facility] 2022-05-11 2022-05-11 Urgent Provider, [facility] [id number] [facility] 17:00:00 17:20:00 Care [facility] [id number] ity of [place] [id number] Nav as HAYLIE?BLEA [id number] [address] 2022-05-11 2022-05-11 Outpatient R JOHN [facility] [id number] Univers 17:00:00 17:00:00 SERGEI [facility] 2022-05-11 2022-05-11 [facility] [id number] Univers 17:00:00 17:00:00 ARABELLA [facility] 2022-05-11 2022-05-11 Orders Doctor FRITZ [id number] Univers 00:00:00 00:00:00 Only Unassigned, DEANNE [id number] ity of [facility] [id number] Nav as [id number] [address] 2022-03-01 2022-03-01 Emergency Wingkun, 1.2.840.1 [id number] Methodi 18:44:00 21:48:[id number] Go 3.430.2.7 Hospit a .3.340461 l .8 2022-03-01 2022-03-01 Emergency DENIS, [facility] [id number] [place] 00:00:00 00:00:[address] 2022-03-01 2022-03-01 Travel 1.2.840.1 [id number] [facility] 00:00:00 00:00:[id number] 3.430.2.7 0.2.7.3.698 Ho spita .[id number] 084.8 l .8 2021-02-08 2021-02-08 Outpatient Jason MISTRY [facility] [id number] Univers 11:30:00 11:30:00 [facility] 2021-01-20 2021-01-20 Outpatient Jason MISTRY [facility] [id number] Univers 17:50:00 17:42:35 [facility] 2020-12-18 2020-12-18 Laboratory Lab, Adc Fam Pob I [facility] [id number]. [id number] Univers 17:33:43 17:53:43 Only Hien Arellano [id number] [id number] Nav as Professio [phone] [address] Office [address] 2020-12-18 2020-12-18 Outpatient R PATTI [facility] [id number] Univers 17:40:00 17:40:00 HIEN smith [facility] Results Test Description Test Time Test Comments Results Result Comments Source Urine culture 2022-03-02 00:22:00 Test Item Value Reference Range Interpretation Comme nts Urine culture (test code = [id number]) SEE COMMENT Bacteriuria screen negative. [facility]
[2023-01-05] MEDS ORDERED: NA CHLORIDE 0.9% 1,000 ML ONE (20:23)
[2023-01-05] MEDS ORDERED: ONDANSETRON 4 MG/2 ML VIAL ONE (20:23)
[2023-01-05] MEDS ORDERED: DICYCLOMINE HCL 20 MG/2 ML AMP IM ONE (20:23)
[2023-01-05 20:32] LABS: Absolute Lymphocytes (CBC) 3.1 K/uL (0.7-4.9); Hematocrit 44.6 % (36.0-45.0); Lymphocytes % 43.1 % (15.3-44.8); MCV 89.9 fL (80-100); MPV 7.2 fL (7.6-11.3); RBC Red Blood Cell Count 4.96 M/uL (3.86-4.86)
[2023-01-05 20:34] LABS: Protime INR 0.98
[2023-01-05 20:37] LABS: Specific Gravity 1.023 (1.005-1.030); Urine Bacteria None Seen /HPF (<20); Urine Bilirubin NEGATIVE (Negative); Urine Blood Negative (Negative); Urine Clarity Clear (Clear); Urine Color Light-Yellow (Yellow); Urine Glucose NEGATIVE (Negative); Urine Mucus Slight /HPF (None Seen); Urine Protein NEGATIVE (Negative); Urine RBC None Seen /HPF (None Seen); Urine Urobilinogen Normal (Normal); Urine pH 6.5 (5.0-7.0)
[2023-01-05 20:47] LABS: Albumin 3.7 g/dL (3.4-5.0); Bilirubin Total 0.2 mg/dL (0.2-1.0); Potassium 3.3 mEq/L (3.5-5.1); Protein, Total 7.6 g/dL (6.4-8.2)
[2023-01-05] MEDS ORDERED: MORPHINE 4 MG/ML SYR ONE (22:09)
--- NOTE | 2023-01-05 23:03 | RAD REPORT ---
EXAM DESCRIPTION: CTAbdomen Pelvis W Contrast - 01/05/2023 10:53 pm CLINICAL HISTORY: blood in stool;Abd pain COMPARISON: Abdomen Pelvis W Contrast dated 02/06/2022; Abdomen Pelvis W Contrast dated 07/01/2020 ; Abdomen Pelvis W Contrast dated 05/19/2020 TECHNIQUE: CT of the abdomen and pelvis was performed. All CT scans are performed using dose optimization technique as appropriate and may include automated exposure control or mA/KV adjustment according to patient size. FINDINGS: Lower chest: Mild circumferential thickened distal esophagus. Liver: No acute abnormality or suspicious lesions. Biliary: Cholecystectomy Stomach: No significant focal abnormality. Duodenum: No significant focal abnormality. Pancreas: No significant abnormality. Spleen: No significant abnormality. Adrenal: No suspicious lesions. Kidney/ureter: No hydronephrosis. No renal calculi. Retroperitoneum: No retroperitoneal adenopathy. Vascular: No aneurysm. Bowel: No significant focal abnormality. Normal appendix. Peritoneum: No ascites or free air. Small fat containing umbilical hernia . Bladder: Grossly unremarkable. Reproductive: No adnexal masses. Corpus luteal cyst in the left ovary . Bones: No acute fracture. Other: n/a IMPRESSION: No acute intra-abdominal or pelvic finding. Normal appendix.
--- NOTE | 2023-01-05 23:34 | ER ---
Nurse's Notes [facility] Name: Simin Doe Age: 42 yrs Sex: Female : 1980 Arrival Date: 01/05/2023 Time: 18:53 Bed 18 Private MD: Diagnosis: Diarrhea, unspecified;GI Bleed/ Gastrointestinal hemorrhage, unspecified;Upper abdominal pain, unspecified Presentation: 01/05 19:20 Chief complaint: Patient states: I was taking weekly shots for weight loss and i kd3 developed side pain and my doctor thought the pain was from the shot so two weeks ago he took me off of it. Since then the pain has not gotten better and i now have blood in my stool. I haven't had a solid bowl movement for about two months now. Coronavirus screen: Vaccine status:. Ebola Screen: No symptoms or risks identified at this time. Initial Sepsis Screen: Does the patient meet any 2 criteria? No. Patient's initial sepsis screen is negative. Does the patient have a suspected source of infection? No. Patient's initial sepsis screen is negative. Risk Assessment: Do you want to hurt yourself or someone else? Patient reports no desire to harm self or others. Onset of symptoms was January 05, 2023. 19:20 Method Of Arrival: Ambulatory kd3 19:20 Acuity: YVONNE 3 kd3 Triage Assessment: 19:23 General: Appears uncomfortable, Behavior is calm, cooperative. Pain: Complains of pain kd3 in right upper quadrant. GI: Abdomen is obese. 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 - Social history:: Smoking status: Patient denies any tobacco usage or history of. Screenin:25 [facility] ED Fall Risk Assessment (Adult) History of falling in the last 3 months, ha1 including since admission No falls in past 3 months (0 pts) Confusion or Disorientation No (0 pts) Intoxicated or Sedated No (0 pts) Impaired Gait No (0 pts) Mobility Assist Device Used No (0 pt) Altered Elimination No (0 pt) Score/Fall Risk Level 0 - 2 = Low Risk Oriented to surroundings, Maintained a safe environment, Educated pt \T\ family on fall prevention, incl call for assistance when getting out of bed, Hourly rounding (assess needs \T\ fall precautionary measures) done. 23:57 Abuse screen: Denies threats or abuse. Denies injuries from another. Nutritional ha1 screening: No deficits noted. Tuberculosis screening: No symptoms or risk factors identified. Assessment: 19:35 General: Appears uncomfortable, Behavior is calm, cooperative. Pain: Complains of pain ha1 in abdomen Pain does not radiate. Pain currently is 9 out of 10 on a pain scale. Quality of pain is described as throbbing. Neuro: Level of Consciousness is awake, alert, obeys commands, Oriented to person, place, time, situation. Cardiovascular: Patient's skin is warm and dry. Respiratory: Airway is patent Respiratory effort is even, unlabored, Respiratory pattern is regular, symmetrical. Musculoskeletal: Circulation, motion, and sensation intact. Range of motion: intact in all extremities. 19:35 GI: Abdomen is non-distended, obese, Bowel sounds present X 4 quads. Abd is soft and ha1 non tender X 4 quads. 20:35 Reassessment: Patient and/or family updated on plan of care and expected duration. Pain ha1 level reassessed. Patient is alert, oriented x 3, equal unlabored respirations, skin warm/dry/pink. 21:30 Reassessment: Patient and/or family updated on plan of care and expected duration. Pain ha1 level reassessed. Patient is alert, oriented x 3, equal unlabored respirations, skin warm/dry/pink. pain 6/10 Patient states feeling better. 22:00 Reassessment: Patient and/or family updated on plan of care and expected duration. Pain ha1 level reassessed. Patient is alert, oriented x 3, equal unlabored respirations, skin warm/dry/pink. collected stool. appears soft light brown. 23:00 Reassessment: Patient and/or family updated on plan of care and expected duration. Pain ha1 level reassessed. Patient is alert, oriented x 3, equal unlabored respirations, skin warm/dry/pink. Patient states feeling better. Patient states symptoms have improved. Vital Signs: 19:19 Pulse 79; Resp 19; Temp 98.8(TE); Pulse Ox 99% ; Weight 89.81 kg; Height 4 ft. 9 in. ; kd3 19:20 BP 140 / 91; kd3 20:38 BP 124 / 80; Pulse 65; Resp 18 S; Pulse Ox 99% ; ha1 21:00 BP 128 / 81; Pulse 73; Resp 18; Pulse Ox 99% on R/A; ha1 22:00 BP 108 / 57; Pulse 83; Resp 19 S; Pulse Ox 97% on R/A; ha1 22:30 BP 110 / 61; Pulse 73; Resp 18 S; Pulse Ox 97% ; ha1 23:15 BP 118 / 87; Pulse 85; Resp 18 S; Pulse Ox 97% on R/A; ha1 19:19 Body Mass Index 42.85 (89.81 kg, 144.78 cm) kd3 ED Course: 18:57 Patient arrived in ED. mr 19:07 Keyshawn Mtz PA is PHCP. cp 19:07 Jose Prakash MD is Attending Physician. cp 19:23 Triage completed. kd3 19:23 Arm band placed on right wrist. kd3 19:25 Patient has correct armband on for positive identification. Placed in gown. Bed in low ha1 position. Call light in reach. Side rails up X 1. 20:08 CBC with Diff Sent. kd3 20:08 CMP Sent. kd3 20:08 Lipase Sent. kd3 20:08 Test, Urine Sent. kd3 20:08 Urinalysis w/ reflexes Sent. kd3 20:08 PT-INR Sent. kd3 20:09 Inserted saline lock: 20 gauge in right antecubital area, using aseptic technique. kd3 Blood collected. 20:11 Katy Paulson, RN is Primary Nurse. ha1 22:55 CT Abd/Pelvis - PO and IV Contrast In Process Unspecified. EDMS 23:32 Ruy Coffman MD is Referral Physician. cp 23:57 No provider procedures requiring assistance completed. IV discontinued, intact, ha1 bleeding controlled, No redness/swelling at site. Pressure dressing applied. Administered Medications: 20:15 Drug: Ondansetron IVP 4 mg Route: IVP; Site: right antecubital; ha1 21:30 Follow up: Response: No adverse reaction ha1 20:18 Drug: NS 0.9% IV 1000 ml Route: IV; Rate: 1 bolus; Site: right antecubital; ha1 23:56 Follow up: Response: No adverse reaction; IV Status: Completed infusion; IV Intake: ha1 1000ml 20:18 Drug: Dicyclomine IM 20 mg Route: IM; Site: right ventrogluteal; ha1 20:30 Follow up: Response: No adverse reaction ha1 22:55 Drug: morphine IVP or IV 4 mg Route: IVP; Infused Over: 4 mins; Site: right antecubital;ha1 23:15 Follow up: Response: No adverse reaction; Pain is decreased; RASS: Alert and Calm (0) ha1 Medication: 23:58 VIS not applicable for this client. ha1 Intake: 23:56 IV: 1000ml; Total: 1000ml. ha1 Outcome: 23:33 Discharge ordered by . altagracia 23:57 Discharged to home ambulatory. ha1 23:57 Condition: stable 23:57 Discharge instructions given to patient, Instructed on discharge instructions, follow up and referral plans. medication usage, Demonstrated understanding of instructions, follow-up care, medications, Prescriptions given X 1. 23:58 Patient left the ED. ha1 Signatures: Dispatcher [employer] EDIN Sangeetha Pro Keyshawn Mtz PA PA cp Doucette, Kyli, RN RN kd3 Katy Paulson RN RN ha1 Corrections: (The following items were deleted from the chart) 23:53 19:35 Pain: Complains of pain in abdomen Pain does not radiate. Pain currently is 9 out ha1 of 10 on a pain scale. Quality of pain is described as throbbing, ha1
--- NOTE | 2023-01-05 23:34 | EDPHYS ---
Physician Documentation [facility] Name: Simin Doe Age: 42 yrs Sex: Female : 1980 Arrival Date: 01/05/2023 Time: 18:53 Bed 18 Private MD: ED Physician Jose Prakash HPI: 01/05 19:50 This 42 yrs old Female presents to ER via Ambulatory with complaints of cp Abdominal Pain, Diarrhea. 19:50 The patient presents with abdominal pain in the right upper quadrant, right lower cp quadrant. Onset: The symptoms/episode began/occurred 2 month(s) ago. The symptoms do not radiate. Associated signs and symptoms: Pertinent positives: diarrhea, blood in stool, Pertinent negatives: anorexia, chest pain, constipation, fever, headache, vomiting. The symptoms are described as waxing/waning. Patient reports 2 months ago she started weekly weight loss injections but c/o right side abdomen pain so they were discontinued. Pain continues and for past 3 days has noticed diarrhea with red colored bloody stools. 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 - Social history:: Smoking status: Patient denies any tobacco usage or history of. ROS: 20:00 Constitutional: Negative for body aches, chills, fever, poor PO intake, weight loss. cp 20:00 Eyes: Negative for injury, pain, redness, and discharge. cp 20:00 ENT: Negative for drainage from ear(s), ear pain, sore throat. 20:00 Cardiovascular: Negative for chest pain, edema, palpitations. 20:00 Respiratory: Negative for cough, shortness of breath, wheezing. 20:00 Abdomen/GI: Positive for abdominal pain, diarrhea, rectal bleeding, Negative for vomiting, constipation, anorexia. 20:00 Back: Negative for pain at rest, pain with movement. 20:00 : Negative for urinary symptoms, vaginal bleeding. 20:00 Neuro: Negative for altered mental status, dizziness, headache, syncope, weakness. 20:00 All other systems are negative. Exam: 20:03 Constitutional: The patient appears in no acute distress, alert, awake, non-toxic, well cp developed, well nourished, overweight 20:03 Head/Face: Normocephalic, atraumatic. cp 20:03 Eyes: Periorbital structures: appear normal, Conjunctiva: normal, no exudate, no injection, Sclera: no appreciated abnormality, Lids and lashes: appear normal, bilaterally. 20:03 ENT: External ear(s): are unremarkable, Nose: is normal, Mouth: Lips: moist, Oral mucosa: pink and intact, moist, Posterior pharynx: is normal, airway is patent, no erythema, no exudate. 20:03 Neck: ROM/movement: is normal, is supple, without pain, no range of motions limitations. 20:03 Chest/axilla: Inspection: normal. 20:03 Cardiovascular: Rate: normal, Rhythm: regular, Edema: is not appreciated, JVD: is not appreciated. 20:03 Respiratory: the patient does not display signs of respiratory distress, Respirations: normal, no use of accessory muscles, no retractions, labored breathing, is not present, Breath sounds: are clear throughout, no decreased breath sounds, no stridor, no wheezing. 20:03 Abdomen/GI: Inspection: obese Bowel sounds: active, all quadrants, Palpation: soft, in all quadrants, moderate abdominal tenderness, in the right upper quadrant and right lower quadrant, rebound tenderness, is not appreciated, involuntary guarding, is not appreciated. 20:03 Back: CVA tenderness, is absent. 20:03 Skin: cellulitis, is not appreciated, no rash present. 20:03 Neuro: Orientation: to person, place \T\ time. Mentation: is normal, Motor: moves all fours, strength is normal, Sensation: is normal. Vital Signs: 19:19 Pulse 79; Resp 19; Temp 98.8(TE); Pulse Ox 99% ; Weight 89.81 kg; Height 4 ft. 9 in. ; kd3 19:20 BP 140 / 91; kd3 20:38 BP 124 / 80; Pulse 65; Resp 18 S; Pulse Ox 99% ; ha1 21:00 BP 128 / 81; Pulse 73; Resp 18; Pulse Ox 99% on R/A; ha1 22:00 BP 108 / 57; Pulse 83; Resp 19 S; Pulse Ox 97% on R/A; ha1 22:30 BP 110 / 61; Pulse 73; Resp 18 S; Pulse Ox 97% ; ha1 23:15 BP 118 / 87; Pulse 85; Resp 18 S; Pulse Ox 97% on R/A; ha1 19:19 Body Mass Index 42.85 (89.81 kg, 144.78 cm) kd3 MDM: 19:24 Patient medically screened. cp 20:51 Independent interpretation of the following test(s) in the Emergency Department X-Ray: cp My interpretation is images of right humerus negative for acute fracture and images of left knee negative for fracture. 23:30 Data reviewed: vital signs, nurses notes, lab test result(s), radiologic studies, CT cp scan. 23:30 Consideration of Admission/Observation Escalation of care including cp admission/observation considered. I considered the following discharge prescriptions or medication management in the emergency department Medications were administered in the Emergency Department. See MAR. Counseling: I had a detailed discussion with the patient and/or guardian regarding: the historical points, exam findings, and any diagnostic results supporting the discharge/admit diagnosis, lab results, radiology results, the need for outpatient follow up, for definitive care, a clean up helper banquet, to return to the emergency department if symptoms worsen or persist or if there are any questions or concerns that arise at home. Response to treatment: the patient's symptoms have mildly improved after treatment. ED course: VSS. Discussed results of labs, CT abdomen/pelvis and need for GI f/u. H/H stable will discharge to home for continued monitoring. 01/05 19:44 Order name: CBC with Diff; Complete Time: 20:52 cp 01/05 20:52 Interpretation: Normal except: RBC 4.96; HGB 15.4; MPV 7.2. cp 01/05 19:44 Order name: CMP; Complete Time: 20:52 cp 01/05 20:53 Interpretation: Normal except: K 3.3; CL 108; GLUC 116; GFR 81; AST 10; GLOB 3.9; A/G cp 0.9. 01/05 19:44 Order name: Lipase; Complete Time: 20:52 cp 01/05 19:44 Order name: Test, Urine; Complete Time: 20:52 cp 01/05 19:44 Order name: Urinalysis w/ reflexes; Complete Time: 20:52 cp 01/05 19:44 Order name: PT-INR; Complete Time: 20:52 cp 01/05 20:03 Order name: Rotavirus Antigen cp 01/05 20:03 Order name: Stool Culture cp 01/05 20:03 Order name: CT Abd/Pelvis - PO and IV Contrast; Complete Time: 23:16 cp 01/05 23:17 Interpretation: Report reviewed. cp 01/05 19:44 Order name: IV Saline Lock; Complete Time: 20:08 cp 01/05 19:44 Order name: Labs collected and sent; Complete Time: 20:08 cp Administered Medications: 20:15 Drug: Ondansetron IVP 4 mg Route: IVP; Site: right antecubital; ha1 21:30 Follow up: Response: No adverse reaction ha1 20:18 Drug: NS 0.9% IV 1000 ml Route: IV; Rate: 1 bolus; Site: right antecubital; ha1 23:56 Follow up: Response: No adverse reaction; IV Status: Completed infusion; IV Intake: ha1 1000ml 20:18 Drug: Dicyclomine IM 20 mg Route: IM; Site: right ventrogluteal; ha1 20:30 Follow up: Response: No adverse reaction ha1 22:55 Drug: morphine IVP or IV 4 mg Route: IVP; Infused Over: 4 mins; Site: right antecubital;ha1 23:15 Follow up: Response: No adverse reaction; Pain is decreased; RASS: Alert and Calm (0) ha1 Disposition: 01/06 08:59 Co-signature as Attending Physician, Jose Prakash MD I reviewed the patient's care rt provided by the Advanced Practice Provider and agree with the diagnosis and treatment plan. Disposition Summary: 01/05/23 23:33 Discharge Ordered Location: Home cp Problem: new cp Symptoms: have improved cp Condition: Stable cp Diagnosis - Diarrhea, unspecified cp - GI Bleed/ Gastrointestinal hemorrhage, unspecified cp - Upper abdominal pain, unspecified cp Followup: cp - With: Ruy Coffman MD - When: 2 - 3 days - Reason: Recheck today's complaints Discharge Instructions: - Discharge Summary Sheet cp - Abdominal Pain, Adult cp - Food Choices to Help Relieve Diarrhea, Adult cp - Diarrhea, Adult cp - Rectal Bleeding cp - Colonoscopy, Adult cp Forms: - Medication Reconciliation Form cp - Thank You Letter cp - Antibiotic Education cp - Prescription Opioid Use cp Prescriptions: - Zofran 4 mg Oral Tablet - take 1 tablet by ORAL route every 12 hours As needed; 20 tablet; Refills: 0, cp Product Selection Permitted - Cipro 500 mg Oral Tablet - take 1 tablet by ORAL route every 12 hours for 10 days; 20 tablet; Refills: 0, cp Product Selection Permitted - Metronidazole 500 mg Oral Tablet - take 1 tablet by ORAL route every 8 hours; 30 tablet; Refills: 0, Product cp Selection Permitted - dicyclomine 20 mg Oral Tablet - take 1 tablet by ORAL route 4 times per day; 30 tablet; Refills: 0, Product cp Selection Permitted Signatures: Dispatcher [employer] EDMS Keyshawn Mtz PA PA cp Doucette, Kyli RN RN kd3 Katy Paulson RN RN ha1 Jose Prakash MD MD rt Corrections: (The following items were deleted from the chart) 01/05 22:00 20:52 Leandro wrap-joint ordered. cp cp 22:00 20:52 Sling ordered. cp cp 23:29 20:03 C.difficile GDH Ag \T\ Toxin AB+LAB.BRZ ordered. EDMS EDMS
[2023-01-06 00:32] VITALS: TEMP 98.8
[2023-01-06 00:40] VITALS: O2SAT 97
[2023-01-06 00:43] VITALS: BP 118/87
== END 2023-01-05 23:58 | disposition home or self-care (01) ==
LOC: ER 18:53
DX: R19.7 Diarrhea, unspecified (principal); K92.2 Gastrointestinal hemorrhage, unspecified
CPT/HCPCS: 96361; 87045; 85025; 81001; 36415; 81025; 85610; 87046; 83690; 80053; 87425; 74177; 96375; 96372; 96374; 99284; Q9967; J0500; J2405; J7030

== ENCOUNTER → 2023-10-24 | Emergency (ER) | payer BC ==
[~2023-10-24] MED LIST: CEPHALEXIN 250 MG CAP ONE; DIPHENHYDRAMINE 50 MG/ML VIAL ONE; KETOROLAC 30 MG/ML INJ ONE; METOCLOPRAMIDE 10 MG/2mL INJ ONE; NA CHLORIDE 0.9% 1,000 ML ONE; metroNIDAZOLE 500 MG TABLET ONE
[2023-10-24 19:55] LABS: Absolute Lymphocytes (CBC) 2.3 K/uL (0.7-4.9); Hematocrit 42.1 % (36.0-45.0); Lymphocytes % 37.5 % (15.3-44.8); MCV 89.7 fL (80-100); MPV 7.1 fL (7.6-11.3); Platelets 389 thou/uL (152-406); RBC Red Blood Cell Count 4.69 M/uL (3.86-4.86)
[2023-10-24 20:00] LABS: Albumin 3.5 g/dL (3.4-5.0); Bilirubin Total 0.3 mg/dL (0.2-1.0); Potassium 3.3 mEq/L (3.5-5.1); Protein, Total 7.2 g/dL (6.4-8.2)
[2023-10-24 20:23] LABS: Specific Gravity 1.015 (1.005-1.030)
[2023-10-24 20:24] LABS: Specific Gravity 1.015 (1.005-1.030); Urine Bacteria None Seen /HPF (<20); Urine Bilirubin NEGATIVE (Negative); Urine Blood 3+ (OVER) (Negative); Urine Clarity Extremely Turbid (Clear); Urine Color Light-Brown (Yellow); Urine Crystals Unidentified Few /HPF (None Seen); Urine Glucose NEGATIVE (Negative); Urine Protein TRACE (Negative); Urine RBC >50 /HPF (None Seen); Urine Urobilinogen Normal (Normal)
--- NOTE | 2023-10-24 20:45 | RAD REPORT ---
EXAM DESCRIPTION: RAD - Wrist Right 2 View - 10/24/2023 8:16 pm CLINICAL HISTORY: PAIN COMPARISON: No comparisons FINDINGS/IMPRESSION: No acute fracture. No malalignment. No significant focal degenerative changes.
--- NOTE | 2023-10-24 21:08 | RAD REPORT ---
EXAM DESCRIPTION: CT - Head Brain Wo Cont - 10/24/2023 9:02 pm CLINICAL HISTORY: NUMBNESS COMPARISON: Head Brain Wo Cont dated 08/17/2021 TECHNIQUE: All CT scans are performed using dose optimization technique as appropriate and may inclu de automated exposure control or mA/KV adjustment according to patient size. FINDINGS: No intracranial hemorrhage, hydrocephalus or extra-axial fluid collection.No areas of brai n edema or evidence of midline shift. The paranasal sinuses and mastoids are clear. The calvarium is intact. IMPRESSION: No acute intracranial abnormality.
--- NOTE | 2023-10-24 21:11 | RAD REPORT ---
EXAM DESCRIPTION: CTAbdomen Pelvis W Contrast - 10/24/2023 9:03 pm CLINICAL HISTORY: ABD PAIN COMPARISON: Abdomen Pelvis W Contrast dated 01/05/2023; Abdomen Pelvis W Contrast dated 02/06/2022 ; Abdomen Pelvis W Contrast dated 07/01/2020; Abdomen Pelvis W Contrast dated 05/19/2020 TECHNIQUE: CT of the abdomen and pelvis was performed. All CT scans are performed using dose optimization technique as appropriate and may include automated exposure control or mA/KV adjustment according to patient size. FINDINGS: Lower chest: No acute abnormality. Mild circumferential thickened distal esophagus could r eflect mild esophagitis. Liver: No acute abnormality or suspicious lesions. Hepatic steatosis . Biliary: No biliary ductal dilatation. Stomach: No significant focal abnormality. Duodenum: No significant focal abnormality. Pancreas: No significant abnormality. Spleen: No significant abnormality. Adrenal: No suspicious lesions. Kidney/ureter: No hydronephrosis. No renal calculi. Retroperitoneum: No retroperitoneal adenopathy. Vascular: No aneurysm. Bowel: Borderline thickening of the transverse colonic wall with some questionable prominence of the vasa recta. No bowel obstruction.. Normal appendix Peritoneum: No ascites or free air. Tiny fat containing umbilical hernia. Bladder: Grossly unremarkable. Reproductive: No adnexal masses. Bones: No acute fracture. Other: n/a IMPRESSION: Questionable mild transverse colonic wall thickening which could indicate a mild colitis . Normal appendix. No other acute findings identified.
--- NOTE | 2023-10-24 22:27 | ER ---
Nurse's Notes [facility] Name: Simin Doe Age: 43 yrs Sex: Female : 1980 Arrival Date: 10/24/2023 Time: 18:45 Bed DX4 Private MD: Diagnosis: Acute onset abdominal pain, transverse colitis, acute urinary tract infection, UTI with hematuria, bilateral hand numbness, acute right wrist pain, musculoskeletal pain Presentation: 10/24 19:00 Chief complaint: Patient states: right sided abdominal pain x1 week and arm pain that as6 started today. Coronavirus screen: At this time, the client does not indicate any symptoms associated with coronavirus-19. Ebola Screen: No symptoms or risks identified at this time. Initial Sepsis Screen: Does the patient meet any 2 criteria? No. Patient's initial sepsis screen is negative. Does the patient have a suspected source of infection? No. Patient's initial sepsis screen is negative. Risk Assessment: Do you want to hurt yourself or someone else? Patient reports no desire to harm self or others. Onset of symptoms was October 24, 2023. 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 - Social history:: Smoking status: Patient denies any tobacco usage or history of. - Family history:: not pertinent. Screenin:34 [facility] ED Fall Risk Assessment (Adult) History of falling in the last 3 months, ap3 including since admission No falls in past 3 months (0 pts). Abuse screen: Denies threats or abuse. Nutritional screening: No deficits noted. Tuberculosis screening: No symptoms or risk factors identified. Assessment: 19:54 VAN Scoring: Arm Drift: Patients demonstrates NO arm weakness. Patient is VAN Negative. jb4 Maria R Swallow Protocol Brief Cognitive Screen What is your name? Normal, Where are you right now? Normal, What year is it? Normal. Oral Mechanism Examination Facial Symmetry: Normal, Motion: Normal, Lip Closure: Normal, Oral Mechanism Result: Normal. 3 oz Water Swallow Challenge: Pt able to drink all water without stopping, coughing, choking or throat clearing: Yes Result: PASS MD Notified: Ric Adrian MD. General: Appears in no apparent distress. comfortable, Behavior is calm, cooperative, appropriate for age. Pain: Complains of pain in right wrist Pain does not radiate. Pain currently is 6 out of 10 on a pain scale. 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 Gait is steady, Speech is normal, Facial droop on right, Numbness in right arm and left arm. Cardiovascular: Reports. Respiratory: Airway is patent Respiratory effort is even, unlabored, Respiratory pattern is regular, symmetrical. GI: No signs and/or symptoms were reported involving the gastrointestinal system. : No signs and/or symptoms were reported regarding the genitourinary system. EENT: No signs and/or symptoms were reported regarding the EENT system. Derm: Skin is intact, Skin is pink, warm \T\ dry. Musculoskeletal: Circulation, motion, and sensation intact. Range of motion: intact in all extremities. 21:00 Reassessment: Patient appears in no apparent distress at this time. Patient and/or jb4 family updated on plan of care and expected duration. Pain level reassessed. Patient is alert, oriented x 3, equal unlabored respirations, skin warm/dry/pink. 21:56 Reassessment: Patient appears in no apparent distress at this time. Patient and/or jb4 family updated on plan of care and expected duration. Pain level reassessed. Patient is alert, oriented x 3, equal unlabored respirations, skin warm/dry/pink. Vital Signs: 18:58 BP 111 / 84; Pulse 79; Resp 18 S; Temp 98.2(TE); Pulse Ox 96% on R/A; Weight 85.73 kg as6 (R); Height 4 ft. 9 in. (R); Pain 6/10; 22:34 BP 118 / 78; Pulse 67; Pulse Ox 98% on R/A; ap3 18:58 Body Mass Index 40.90 (85.73 kg, 144.78 cm) as6 18:58 Pain Scale: Adult as6 [place] Coma Score: 20:43 Eye Response: spontaneous(4). Motor Response: obeys commands(6). Verbal Response: sp4 oriented(5). Total: 15. NIH Stroke Scale Scores: 19:54 NIHSS Score: 2 jb4 20:43 NIHSS Score: 0 sp4 ED Course: 18:47 Patient arrived in ED. rg4 19:01 Triage completed. as6 19:01 Arm band placed on. as6 19:02 Ric Adrian MD is Attending Physician. sp3 19:39 CBC with Diff Sent. jb4 19:39 CMP Sent. jb4 19:39 Lipase Sent. jb4 20:10 Radiology exam delayed due to test not completed at this time. nj 20:15 Attending Physician role handed off by Ric Adrian MD sp4 20:15 Stephan Stauffer MD is Attending Physician. sp4 20:18 Wrist Right 2 View XRAY In Process Unspecified. EDMS 21:03 CT Head Brain wo Cont In Process Unspecified. EDMS 21:04 CT Abd/Pelvis - IV Contrast Only In Process Unspecified. EDMS 22:27 Allen Bernal MD is Referral Physician. sp4 22:35 Provided Education on: discharge instructions. ap3 22:35 No provider procedures requiring assistance completed. IV discontinued, intact, ap3 bleeding controlled, No redness/swelling at site. Pressure dressing applied. 22:36 Patient has correct armband on for positive identification. ap3 Administered Medications: 20:44 Drug: Ketorolac IVP 30 mg IVP once Route: IVP; Site: left antecubital; nj1 22:36 Follow up: Response: No adverse reaction ap3 20:44 Drug: metoCLOPramide IVP 10 mg IVP once; over 1 to 2 minutes Route: IVP; Site: left nj1 antecubital; 22:36 Follow up: Response: No adverse reaction ap3 20:44 Drug: NS 0.9% IV 1000 ml IV at 1 bolus Per protocol; 1000 mL bolus Route: IV; Rate: 1 nj1 bolus; Site: left antecubital; 22:36 Follow up: IV Status: Completed infusion; IV Intake: 1000ml ap3 20:51 Not Given (Patient Refused; Patient driving self home): [id number] mg IVP once nj1 22:34 Drug: Cephalexin PO 500 mg PO once Route: PO; ap3 22:36 Follow up: Response: No adverse reaction ap3 22:34 Drug: metroNIDAZOLE PO 500 mg PO once Route: PO; ap3 22:36 Follow up: Response: No adverse reaction ap3 Medication: 22:36 VIS not applicable for this client. ap3 Intake: 22:36 IV: 1000ml; Total: 1000ml. ap3 Outcome: 22:27 Discharge ordered by . sp4 22:35 Discharged to home ambulatory, ap3 22:35 Condition: good 22:35 Discharge instructions given to patient, Instructed on discharge instructions, follow up and referral plans. Demonstrated understanding of instructions, follow-up care, medications, Prescriptions given X 4, 22:36 Patient left the ED. ap3 NIH Stroke Scale - NIH Stroke Score Date: 10/24/2023 Time: 19:54 Total Score = 2 10. Dysarthria (speech clarity - read or repeat words) - 0(Normal) 11. Extinction and Inattention (visual/tactile/auditory/spatial/personal) - 0(No abnormality) 1a. Level of Consciousness (LOC) - 0(Alert) 1b. Level of Consciousness (LOC) (Month \T\ Age) - 0(Both) 1c. LOC Commands (Open \T\ Closes Eyes/Sanitor) - 0(Both) 2. Best Gaze (Lateral Gaze Paresis) - 0(Normal) 3. Visual Field Loss - 0(No visual loss) 4. Facial Palsy - 1(Minor Paralysis) 5a. Left Arm: Motor (10-second hold) - 0(No drift) 5b. Right Arm: Motor (10-second hold) - 0(No drift) 6a. Left Leg: Motor (5-second hold - always test supine) - 0(No drift) 6b. Right Leg: Motor (5-second hold - always test supine) - 0(No drift) 7. Limb Ataxia (finger/nose \T\ heel/lowery - test with eyes open) - 0(Absent) 8. Sensory Loss (pinprick arms/legs/face) - 1(Mild to moderate loss) 9. Best Language: Aphasia (description/naming/reading) - 0(No aphasia) Initials: jb4 NIH Stroke Scale - NIH Stroke Score Date: 10/24/2023 Time: 20:43 Total Score = 0 10. Dysarthria (speech clarity - read or repeat words) - 0(Normal) 11. Extinction and Inattention (visual/tactile/auditory/spatial/personal) - 0(No abnormality) 1a. Level of Consciousness (LOC) - 0(Alert) 1b. Level of Consciousness (LOC) (Month \T\ Age) - 0(Both) 1c. LOC Commands (Open \T\ Closes Eyes/Sanitor) - 0(Both) 2. Best Gaze (Lateral Gaze Paresis) - 0(Normal) 3. Visual Field Loss - 0(No visual loss) 4. Facial Palsy - 0(Normal) 5a. Left Arm: Motor (10-second hold) - 0(No drift) 5b. Right Arm: Motor (10-second hold) - 0(No drift) 6a. Left Leg: Motor (5-second hold - always test supine) - 0(No drift) 6b. Right Leg: Motor (5-second hold - always test supine) - 0(No drift) 7. Limb Ataxia (finger/nose \T\ heel/lowery - test with eyes open) - 0(Absent) 8. Sensory Loss (pinprick arms/legs/face) - 0(Normal) 9. Best Language: Aphasia (description/naming/reading) - 0(No aphasia) Initials: sp4 Signatures: Dispatcher [employer] EDCalli Olivas rg4 Tigre Ramirez, RN RN jb4 Palmer Smalls Amanda, RN RN ap3 Ric Adrian MD MD sp3 Brian Red RN RN as6 Stephan Stauffer MD MD sp4 Franchesca Quesada RN RN nj1
--- NOTE | 2023-10-24 22:27 | EDPHYS ---
Physician Documentation [facility] Name: Simin Doe Age: 43 yrs Sex: Female : 1980 Arrival Date: 10/24/2023 Time: 18:45 Bed DX4 Private MD: ED Physician Stephan Stauffer HPI: 10/24 20:15 This 43 yrs old Female presents to ER via Ambulatory with complaints of sp4 Numbness Of Arm, Flank Pain, Facial Droop. 20:17 Historical: Allergies: No Known Allergies; PMHx: Anxiety; Sleep Apnea; PSHx: sp4 Cholecystectomy; . 20:40 Patient is a very pleasant 43-year-old female with history of sleep apnea, sp4 cholecystectomy, anxiety presents with 1 week of right lower abdominal pain associated with bilateral hand pain bilateral hand cramping and also some reported facial drooping. On arrival patient has no facial drooping. Patient primary complaint is right lower abdominal pain. . 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 - Social history:: Smoking status: Patient denies any tobacco usage or history of. - Family history:: not pertinent. ROS: 20:40 Constitutional: Negative for fever, chills, and weight loss, positive abdominal pain in sp4 the right lower quadrant, positive bilateral hand numbness tingling, positive reported right facial droop 20:40 All other systems are negative, Exam: 20:40 Constitutional: This is a well developed, well nourished patient who is awake, alert, sp4 and in no acute distress. Head/Face: Normocephalic, atraumatic. Eyes: Pupils equal round and reactive to light, extra-ocular motions intact. Lids and lashes normal. Conjunctiva and sclera are not injected. Cornea within normal limits. Periorbital areas with no swelling, redness, or edema. ENT: Nares patent. No nasal discharge, no septal abnormalities noted. Tympanic membranes are normal and external auditory canals are clear. Oropharynx with no redness, swelling, or masses, exudates, or evidence of obstruction, uvula midline. Mucous membranes moist. Neck: Trachea midline, no thyromegaly or masses palpated, and no cervical lymphadenopathy. Supple, full range of motion without nuchal rigidity, or vertebral point tenderness. Chest/axilla: Normal chest wall appearance and motion. Nontender with no deformity. No lesions are appreciated. Cardiovascular: Regular rate and rhythm with a normal S1 and S2. No gallops, murmurs, or rubs. Normal PMI, no JVD. No pulse deficits. Respiratory: Lungs have equal breath sounds bilaterally, clear to auscultation and percussion. No rales, rhonchi or wheezes noted. No increased work of breathing, no retractions or nasal flaring. Abdomen/GI: Soft, with normal bowel sounds. No distension or tympany. No guarding or rebound. No evidence of tenderness throughout. Back: No spinal tenderness. No costovertebral tenderness. Skin: Warm, dry with normal turgor. Normal color with no rashes, no lesions, and no evidence of cellulitis. MS/ Extremity: Pulses equal, no cyanosis. Neurovascular intact. Full, normal range of motion. Neuro: Awake and alert, GCS 15, oriented to person, place, time, and situation. Cranial nerves II-XII grossly intact. Motor strength 5/5 in all extremities. Sensory grossly intact. Psych: Awake, alert, with orientation to person, place and time. Behavior, mood, and affect are within normal limits Vital Signs: 18:58 BP 111 / 84; Pulse 79; Resp 18 S; Temp 98.2(TE); Pulse Ox 96% on R/A; Weight 85.73 kg as6 (R); Height 4 ft. 9 in. (R); Pain 6/10; 22:34 BP 118 / 78; Pulse 67; Pulse Ox 98% on R/A; ap3 18:58 Body Mass Index 40.90 (85.73 kg, 144.78 cm) as6 18:58 Pain Scale: Adult as6 NIH Stroke Scale Scores: 19:54 NIHSS Score: 2 jb4 20:43 NIHSS Score: 0 sp4 Fallon Coma Score: 20:43 Eye Response: spontaneous(4). Motor Response: obeys commands(6). Verbal Response: sp4 oriented(5). Total: 15. MDM: 19:07 Patient medically screened. sp3 22:24 Differential diagnosis: closed fracture, contusion, abrasion, tendonitis, Colitis, sp4 enteritis. Data reviewed: vital signs, old medical records, lab test result(s), radiologic studies, CT scan, plain films. Consideration of Admission/Observation Escalation of care including admission/observation considered. ED course: CT has revealed colitis, specifically transverse colitis also other signs of urinary tract infection. Otherwise workup is normal. . 22:25 ED course: EXAM DESCRIPTION: CT - Head Brain Wo Cont - 10/24/2023 9:02 pm CLINICAL sp4 HISTORY: NUMBNESS COMPARISON: Head Brain Wo Cont dated 08/17/2021 TECHNIQUE: All CT scans are performed using dose optimization technique as appropriate and may include automated exposure control or mA/KV adjustment according to patient size. FINDINGS: No intracranial hemorrhage, hydrocephalus or extra-axial fluid collection.No areas of brain edema or evidence of midline shift. The paranasal sinuses and mastoids are clear. The calvarium is intact. IMPRESSION: No acute intracranial abnormality. ED course: EXAM DESCRIPTION: RAD - Wrist Right 2 View - 10/24/2023 8:16 pm CLINICAL HISTORY: PAIN COMPARISON: No comparisons FINDINGS/IMPRESSION: No acute fracture. No malalignment. No significant focal degenerative changes.. ED course: COMPARISON: Abdomen Pelvis W Contrast dated 01/05/2023; Abdomen Pelvis W Contrast dated 02/06/2022; Abdomen Pelvis W Contrast dated 07/01/2020; Abdomen Pelvis W Contrast dated 05/19/2020 TECHNIQUE: CT of the abdomen and pelvis was performed. All CT scans are performed using dose optimization technique as appropriate and may include automated exposure control or mA/KV adjustment according to patient size. FINDINGS: Lower chest: No acute abnormality. Mild circumferential thickened distal esophagus could reflect mild esophagitis. Liver: No acute abnormality or suspicious lesions. Hepatic steatosis . Biliary: No biliary ductal dilatation. Stomach: No significant focal abnormality. Duodenum: No significant focal abnormality. Pancreas: No significant abnormality. Spleen: No significant abnormality. Adrenal: No suspicious lesions. Kidney/ureter: No hydronephrosis. No renal calculi. Retroperitoneum: No retroperitoneal adenopathy. Vascular: No aneurysm. Bowel: Borderline thickening of the transverse colonic wall with some questionable prominence of the vasa recta. No bowel obstruction.. Normal appendix Peritoneum: No ascites or free air. Tiny fat containing umbilical hernia. Bladder: Grossly unremarkable. Reproductive: No adnexal masses. Bones: No acute fracture. Other: n/a IMPRESSION: Questionable mild transverse colonic wall thickening which could indicate a mild colitis. Normal appendix. No other acute findings identified. . 10/24 19:17 Order name: CBC with Diff; Complete Time: 22:18 sp3 10/24 19:17 Order name: CMP; Complete Time: 22:18 sp3 10/24 19:17 Order name: Lipase; Complete Time: 22:18 sp3 10/24 19:17 Order name: Urinalysis w/ reflexes; Complete Time: 22:18 sp3 10/24 19:17 Order name: Test, Urine; Complete Time: 22:18 sp3 10/24 20:23 Order name: Troponin High Sensitivity; Complete Time: 22:18 sp4 10/24 20:40 Order name: Urine Culture EDMS 10/24 19:17 Order name: CT Abd/Pelvis - IV Contrast Only; Complete Time: 22:18 sp3 10/24 19:39 Order name: CT Head Brain wo Cont; Complete Time: 22:18 sp3 10/24 19:43 Order name: Wrist Right 2 View XRAY; Complete Time: 22:18 jb4 10/24 19:17 Order name: IV Saline Lock; Complete Time: 19:39 sp3 10/24 19:17 Order name: Labs collected and sent; Complete Time: 19:39 sp3 Administered Medications: 20:44 Drug: Ketorolac IVP 30 mg IVP once Route: IVP; Site: left antecubital; nj1 22:36 Follow up: Response: No adverse reaction ap3 20:44 Drug: metoCLOPramide IVP 10 mg IVP once; over 1 to 2 minutes Route: IVP; Site: left nj1 antecubital; 22:36 Follow up: Response: No adverse reaction ap3 20:44 Drug: NS 0.9% IV 1000 ml IV at 1 bolus Per protocol; 1000 mL bolus Route: IV; Rate: 1 nj1 bolus; Site: left antecubital; 22:36 Follow up: IV Status: Completed infusion; IV Intake: 1000ml ap3 20:51 Not Given (Patient Refused; Patient driving self home): [id number] mg IVP once nj1 22:34 Drug: Cephalexin PO 500 mg PO once Route: PO; ap3 22:36 Follow up: Response: No adverse reaction ap3 22:34 Drug: metroNIDAZOLE PO 500 mg PO once Route: PO; ap3 22:36 Follow up: Response: No adverse reaction ap3 Disposition Summary: 10/24/23 22:27 Discharge Ordered Notes: Location: Home sp4 Problem: new sp4 Symptoms: have improved sp4 Condition: Stable sp4 Diagnosis - Acute onset abdominal pain, transverse colitis, acute urinary tract infection, UTI sp4 with hematuria, bilateral hand numbness, acute right wrist pain, musculoskeletal pain Followup: sp4 - With: Private Physician - When: 7 - 10 days - Reason: Recheck today's complaints Followup: sp4 - With: Allen Bernal MD - When: 7 - 10 days - Reason: Recheck today's complaints Discharge Instructions: - Discharge Summary Sheet sp4 - Clear Liquid Diet, Adult, [id number] sp4 Forms: - Patient Portal Instructions sp4 Prescriptions: - naproxen 500 mg Oral tablet - take 1 tablet ORAL route every 12 hours PRN pain; 30 tablet; Refills: 0, sp4 Product Selection Permitted - Cephalexin 250 mg Oral Capsule - take 1 capsule ORAL route every 8 hours for 10 days; 30 capsule; Refills: 0, sp4 Product Selection Permitted - Flagyl 500 mg Oral Tablet - take 1 tablet ORAL route every 8 hours for 10 days; 30 tablet; Refills: 0, sp4 Product Selection Permitted - promethazine 25 mg Oral tablet - take 1 tablet ORAL route every 6 hours As needed PRN nausea; 30 tablet; sp4 Refills: 0, Product Selection Permitted NIH Stroke Scale - NIH Stroke Score Date: 10/24/2023 Time: 19:54 Total Score = 2 10. Dysarthria (speech clarity - read or repeat words) - 0(Normal) 11. Extinction and Inattention (visual/tactile/auditory/spatial/personal) - 0(No abnormality) 1a. Level of Consciousness (LOC) - 0(Alert) 1b. Level of Consciousness (LOC) (Month \T\ Age) - 0(Both) 1c. LOC Commands (Open \T\ Closes Eyes/Clip Wrapper) - 0(Both) 2. Best Gaze (Lateral Gaze Paresis) - 0(Normal) 3. Visual Field Loss - 0(No visual loss) 4. Facial Palsy - 1(Minor Paralysis) 5a. Left Arm: Motor (10-second hold) - 0(No drift) 5b. Right Arm: Motor (10-second hold) - 0(No drift) 6a. Left Leg: Motor (5-second hold - always test supine) - 0(No drift) 6b. Right Leg: Motor (5-second hold - always test supine) - 0(No drift) 7. Limb Ataxia (finger/nose \T\ heel/lowery - test with eyes open) - 0(Absent) 8. Sensory Loss (pinprick arms/legs/face) - 1(Mild to moderate loss) 9. Best Language: Aphasia (description/naming/reading) - 0(No aphasia) Initials: jb4 NIH Stroke Scale - NIH Stroke Score Date: 10/24/2023 Time: 20:43 Total Score = 0 10. Dysarthria (speech clarity - read or repeat words) - 0(Normal) 11. Extinction and Inattention (visual/tactile/auditory/spatial/personal) - 0(No abnormality) 1a. Level of Consciousness (LOC) - 0(Alert) 1b. Level of Consciousness (LOC) (Month \T\ Age) - 0(Both) 1c. LOC Commands (Open \T\ Closes Eyes/Clip Wrapper) - 0(Both) 2. Best Gaze (Lateral Gaze Paresis) - 0(Normal) 3. Visual Field Loss - 0(No visual loss) 4. Facial Palsy - 0(Normal) 5a. Left Arm: Motor (10-second hold) - 0(No drift) 5b. Right Arm: Motor (10-second hold) - 0(No drift) 6a. Left Leg: Motor (5-second hold - always test supine) - 0(No drift) 6b. Right Leg: Motor (5-second hold - always test supine) - 0(No drift) 7. Limb Ataxia (finger/nose \T\ heel/lowery - test with eyes open) - 0(Absent) 8. Sensory Loss (pinprick arms/legs/face) - 0(Normal) 9. Best Language: Aphasia (description/naming/reading) - 0(No aphasia) Initials: sp4 Signatures: Dispatcher [employer] EDMS Antonia Alonzo RN RN ap3 Ric Adrian MD MD sp3 Brian Red RN RN as6 Stephan Stauffer MD MD sp4 Franchesca Quesada, RN RN nj1
== END ==
LOC: ER 18:45
DX: K52.9 Noninfective gastroenteritis and colitis, unspecified (principal); N39.0 Urinary tract infection, site not specified; R31.9 Hematuria, unspecified; M25.531 Pain in right wrist; R20.0 Anesthesia of skin; M79.18 Myalgia, other site; F41.9 Anxiety disorder, unspecified
CPT/HCPCS: 87088; 85025; 81001; 87086; 36415; 81025; 84484; 83690; 80053; 70450; 74177; 73100; Q9967; J2765; J1200; J7030